=== PATIENT | female | born 1940 | race Caucasian/White ===

== ENCOUNTER 2016-10-25 16:53 | Inpatient (IN) | payer OTHER, MEDICAID ==
[2015-08-23 13:36] VITALS: Ht 160 cm; Wt 66.7 kg
[~2016-10-25] VITALS: Ht 160 cm; Wt 66.7 kg
[~2016-10-25 16:53] MED LIST: ALEN70TA27 PO; AMOX-423 PO; AMYL1CAP56 PO; ATEN-41 PO; BIOT25007 PO; BUPR300T55 PO; CALC-226 PO; CEFU250T85 PO; CRE5 PO; DOCU250C PO; ECO81 PO; ESOM40CA PO; ESOM40SU PO; FENO145T PO; GLIP5TAB13 PO; GLU500 PO; HYDR12.5 PO; ICOS1CAP PO; KLO.5 PO; LEVO250T20 PO; LEVO25TA7 PO; LISI2.5T48 PO; LORA-673 PO; MAGN250T31 PO; MECL-110 PO; OLME20TA14 PO; PREG75CA PO; PRO20 PO; QUET200T PO; ROSU5TAB3 PO; SITA100T7 PO; TRAM50TA92 PO
--- NOTE | 2016-10-25 18:07 | NUR ---
PATIENT RECEIVED DIRECT ADMIT FROM OFFICE OF ARABELLA BREWSTER, STABLE CONDITION.
[2016-10-25] MEDS ORDERED: METO-442 PO (18:24)
[2016-10-25] MEDS ORDERED: BIOF1TAB8 PO (18:24)
[2016-10-25] MEDS ORDERED: INSU100V9 SUBCUT (18:24)
[2016-10-25] MEDS ORDERED: INSU100V26 SUBCUT (18:24)
[2016-10-25] MEDS ORDERED: MIRT15TA7 PO (18:24)
--- NOTE | 2016-10-25 18:47 | NUR ---
MEDS SENT TO PHARMACY HOME MEDS INVENTORIED AND SENT TO PHARMACY, INFORMED PATIENT TO LET US KNOW WHEN FAMILY IS HERE TO TAKE THE MEDICATIONS HOME.
--- NOTE | 2016-10-25 18:53 | NUR ---
CLOSING NOTES PATIENT RESTING IN BED, DENIES PAIN, NO DISTRESS, WILL ENDORSE REPORT TO NOC SHIFT NURSE, BED IN LOWEST POSITION, THREE SIDE RAILS UP, BED ALARM ON, BED CLOSE TO NURSE'S STATION, FALL AND ASPIRATION PRECAUTIONS IN PLACE, CALL LIGHT IN THE PATIENT'S HAND.
[2016-10-25 19:30] VITALS: BP 139/57; PULSE 66; RESP 16; TEMP 96.4; O2SAT 96
--- NOTE | 2016-10-25 19:44 | NUR ---
PAGED PAGED ARABELLA CONCEPCION AT [phone] SPOKE WITH LETI.
--- NOTE | 2016-10-25 20:03 | NUR ---
NOTES DR BREWSTER CALLED FOR ADMITTING ORDERS.ORDERS RECEIVED.
[2016-10-25 20:26] VITALS: BP 132/81; PULSE 73; RESP 18; TEMP 96; O2SAT 96
--- NOTE | 2016-10-25 20:44 | NUR ---
NOTES PT A/A/OX4 NO C/O PAIN OR DISCOMFORT.CALL LIGHT WITHIN REACH,PT ORIENTED TO HER ROOM .WILL START THE IV SOON.CONTINUE TO MONITOR.
[2016-10-25] MEDS ORDERED: PREGABALIN 75 MG CAPSULE (LYRICA) PO SCH (21:00)
[2016-10-25] MEDS ORDERED: ICOSAPENT ETHYL 1 GM PO SCH (21:00)
[2016-10-25] MEDS ORDERED: [UNRECOGNIZED DRUG - OTHER] PO SCH (21:00)
[2016-10-25] MEDS: PREGABALIN PO SCH ×2 (22:00)
[2016-10-25] MEDS: QUEtiapine FUMARATE 100 MG TABLET PO SCH (22:09)
[2016-10-25] MEDS: metFORMIN HCL 500 MG TABLET PO SCH (22:09)
[2016-10-25] MEDS: MIRTAZAPINE 15 MG TABLET PO SCH (22:09)
[2016-10-25] MEDS: INSULIN REGULAR, HUMAN 100 UNITS/ML, 10 ML VIAL (novoLIN R) SUBCUT PRN (22:21)
--- NOTE | 2016-10-25 22:39 | NUR ---
NOTES WATCHING TV WITH NO COMPLAINTS ACCUCHECK WAS 153,INSULIN GIVEN PER SLIDING SCALE.
--- NOTE | 2016-10-25 23:17 | NUR ---
NOTES IV STARTED INTO LT HAND WITH #22 ANGIO.USING ANTISEPTIC TECHNIQUE. PT C/O ABDOMINAL PAIN 03/13 RN NOTIFIED.
[2016-10-25] MEDS: MORPHINE 2 MG/ML INJ. SYRINGE IVP PRN (23:30)
[2016-10-26] VITALS (7 sets, daily range): BP systolic 146–156; BP diastolic 74–90; PULSE 65–77; RESP 16–20; TEMP 96.4–97.2; O2SAT 93–96
--- NOTE | 2016-10-26 01:16 | NUR ---
NOTES PT SLEEPING,CALL LIGHT WITHIN REACH.CONTINUE TO MONITOR.
[2016-10-26] MEDS ORDERED: PIPERACILLIN/TAZOBACTAM 3.375 GM/VIAL (ZOSYN) IV ONE (01:34)
[2016-10-26] MEDS: PIPERACILLIN/TAZO 3.375/DEX-IS 50 ML IV SCH ×4 (01:41→17:05)
--- NOTE | 2016-10-26 03:52 | NUR ---
NOTES CRACKERS AND JELLO GIVEN PER REQUEST.CALL LIGHT WITHIN REACH.CONTINUE TO MONITOR.
--- NOTE | 2016-10-26 05:25 | NUR ---
NOTES PT REMAINS ASLEEP,CALL LIGHT WITHIN REACH.CONTINUE TO MONITOR.
[2016-10-26] MEDS: INSULIN REGULAR, HUMAN 100 UNITS/ML, 10 ML VIAL (novoLIN R) SUBCUT PRN ×2 (06:08→21:01)
--- NOTE | 2016-10-26 06:13 | NUR ---
CLOSING NOTES PT AWAKE ,ACCUCHECK WAS 155,INSULIN GIVEN PER S/S WILL ENDORSE THE CARE OF THE PT TO THE DAY NURSE.
[2016-10-26 06:43] LABS: EOSINOPHILS # (AUTO) 0.2 K/uL (0.0-0.4); LYMPHOCYTES # (AUTO) 2.1 K/uL (1.0-5.5); RED CELL DISTRIBUTION WIDTH 14.4 % (9.0-15.0)
[2016-10-26 06:44] LABS: BASOPHILS % (AUTO) 0.3 % (0.0-2.0); HEMATOCRIT 31.8 % (36-48); HEMOGLOBIN 10.8 g/dL (12.0-16.0); LYMPHOCYTES % (AUTO) 36.9 % (20.5-51.5); MEAN CORPUSCULAR HEMOGLOBIN 28 pg (27-31); MEAN CORPUSCULAR HGB CONC 34 % (32-36); MEAN CORPUSCULAR VOLUME 84 fL (79.0-98.0); MONOCYTES # (AUTO) 0.5 K/uL (0.0-1.0); MONOCYTES % (AUTO) 9.4 % (1.7-9.3); NEUTROPHILS % (AUTO) 49.4 % (40.0-70.0); PLATELET COUNT (AUTO) 376 K/uL (130-430); RED BLOOD CELL COUNT(AUTO) 3.79 MIL/uL (4.2-6.2); WHITE BLOOD COUNT (AUTO) 5.8 K/uL (4.8-10.8)
[2016-10-26 06:46] LABS: ALANINE AMINOTRANSFERASE 34 U/L (12-78); ALBUMIN 3.1 g/dL (3.4-4.8); ANION GAP 9 (5-15); ASPARTATE AMINOTRANSFERASE 33 U/L (10-37); CALCIUM 8.6 mg/dL (8.4-11.0); CHLORIDE 101 mmol/L (98-107); CREATININE 1.01 mg/dL (0.55-1.30); GLUCOSE 186 mg/dL (70-99); POTASSIUM 3.2 mmol/L (3.5-5.1); SODIUM SERUM 133 mmol/L (136-145); TOTAL BILIRUBIN 0.3 mg/dL (0.0-1.0); UREA NITROGEN, BLOOD 19 mg/dL (8-21)
--- NOTE | 2016-10-26 08:00 | NUR ---
Opening notes, A/O x 4, no SOB, denied pain. Skin warm to touch, IV at L AC, patent. Call light within reach, Bed in low position. will continue to monitor patient.
[2016-10-26] MEDS: MORPHINE 2 MG/ML INJ. SYRINGE IVP PRN ×4 (08:46→22:08)
--- NOTE | 2016-10-26 08:46 | NUR ---
pain med pt given pain med for pain level 7/10 in abdomen
[2016-10-26] MEDS: LORATADINE 10 MG TABLET PO SCH (08:48)
[2016-10-26] MEDS: metFORMIN HCL 500 MG TABLET PO SCH ×3 (08:48→20:49)
[2016-10-26] MEDS: ASPIRIN 81 MG TABLET(ECOTRIN) PO SCH (08:48)
[2016-10-26] MEDS: LIPASE/PROTEASE/AMYLASE 1 CAP PO SCH (08:49)
[2016-10-26] MEDS: METOPROLOL TARTRATE 50 MG TABLET PO SCH (08:50)
[2016-10-26] MEDS: HYDROCHLOROTHIAZIDE 12.5 MG CAPSULE (HCTZ) PO SCH (08:50)
[2016-10-26] MEDS ORDERED: BIOTIN 500 MG PO SCH (09:00)
[2016-10-26] MEDS ORDERED: LEVOTHYROXINE SODIUM 0.025 MG TABLET PO SCH (09:00)
[2016-10-26] MEDS ORDERED: LISINOPRIL 5 MG TABLET PO SCH (09:00)
[2016-10-26] MEDS: buPROPion HCL 150 MG XL TAB PO SCH (09:00)
--- NOTE | 2016-10-26 09:42 | NUR ---
CONSULTATION CALLED REASON FOR CONSULT: DIVERTICULITIS WHO WAS NOTIFIED: YENI CONSULTING DR: ARABELLA BREWSTER MANAGER [employer] NUMBER: [phone]
--- NOTE | 2016-10-26 10:00 | NUR ---
rounding notes pt in bed, denies pain, no sob. no distress. resting in bed, iv or l wrist patent. call light in reach, bed in low position, will continue to monitor.
[2016-10-26] MEDS ORDERED: DIATR MEGLU/DIATRIZ SOD 30 ML SOLUTION PO ONE (10:15)
[2016-10-26] MEDS ORDERED: LISINOPRIL 20 MG TABLET PO ONE (12:15)
--- NOTE | 2016-10-26 12:56 | NUR ---
pain med patient given pain med for pain level of 8/10
--- NOTE | 2016-10-26 14:00 | NUR ---
rounding notes pt in bed, denies pain, no sob. no distress. resting comfortably in bed, call light in reach, bed in low position, will continue to monitor.
--- NOTE | 2016-10-26 16:00 | NUR ---
rounding notes pt in bed, denies pain, no sob. no distress. resting comfortably in bed. visitor at bedside. new iv stated on r forearm #20, patient tolerated well. call light in reach, bed in low position, will continue to monitor.
--- NOTE | 2016-10-26 18:18 | NUR ---
closing notes, pt remain aao, pain medication requested by patient and given. no untoward incident. dr youngblood reminded of the K-level of 3.2 this am, said he will place order. will endorse to night rn.
--- NOTE | 2016-10-26 19:34 | NUR ---
notes received the pt from the day nurse.pt a/a/ox4 watching tv with no complaints.iv intact,no redness or swelling noted.call light within reach.safety measures in progress.will continue to monitor.
[2016-10-26] MEDS: LACTOBACILLUS RHAMNOSUS GG 1 CAP CAPSULE PO SCH (20:49)
[2016-10-26] MEDS: QUEtiapine FUMARATE 100 MG TABLET PO SCH (20:49)
[2016-10-26] MEDS: MIRTAZAPINE 15 MG TABLET PO SCH (20:49)
[2016-10-26] MEDS: PANTOPRAZOLE SODIUM 40 MG TAB PO SCH (20:51)
[2016-10-26] MEDS: PREGABALIN PO SCH ×2 (21:06)
[2016-10-26] MEDS: POTASSIUM CHLORIDE 20 MEQ TAB.PRT.SR PO SCH ×2 (21:06→22:35)
[2016-10-26] MEDS: SIMVASTATIN 20 MG TABLET PO SCH (21:07)
--- NOTE | 2016-10-26 21:22 | NUR ---
notes potassium given as ordered.orders for a lab draw at midnight for potassium and mag.placed.accucheck was 155,insulin given per s/s.
--- NOTE | 2016-10-26 23:14 | NUR ---
notes pt resting with no complaints.continue to monitor.
[2016-10-27 00:06] VITALS: BP 128/81; PULSE 68; RESP 16; TEMP 98.2; O2SAT 96
[2016-10-27] MEDS: PIPERACILLIN/TAZO 3.375/DEX-IS 50 ML IV SCH ×5 (00:26→23:45)
[2016-10-27 00:34] LABS: POTASSIUM 3.9 mmol/L (3.5-5.1)
--- NOTE | 2016-10-27 01:16 | NUR ---
notes pt sleeping,no distress noted.call light within reach.continue to monitor.
--- NOTE | 2016-10-27 03:25 | NUR ---
notes pt sleeping,call light within reach.continue to monitor.
--- NOTE | 2016-10-27 05:18 | NUR ---
notes pt resting with eyes closed.continue to monitor.
[2016-10-27] MEDS: LEVOTHYROXINE SODIUM 0.025 MG TABLET PO SCH (06:03)
[2016-10-27] MEDS: INSULIN REGULAR, HUMAN 100 UNITS/ML, 10 ML VIAL (novoLIN R) SUBCUT PRN ×2 (06:09→17:47)
--- NOTE | 2016-10-27 06:12 | NUR ---
closing notes pt awake ,accucheck was 158.insulin given per s/s.will endorse the care of the pt to the day nurse.
[2016-10-27 07:29] VITALS: BP 136/84; PULSE 80; RESP 18; TEMP 96.1; O2SAT 92
--- NOTE | 2016-10-27 08:00 | NUR ---
OPENING NOTES, RECEIVED PATIENT IN BED, PATIENT IS ALERT AND ORIENTED 4X, DENIES PAIN , NO SOB, NO DISTRESS. BREATHING NORMAL AND EVEN, ON ROOM AIR. IV SITE APPEARS NORMAL AND IV FLUIDS RUNNING WELL. CALL LIGHT IN REACH, BED IN LOW POSITON. INSTRUCTED PATIENT TO CALL FOR ASSISTANCE AND PAIN MEDICATIONS ANY TIME. WILL CONTINUE TO MONITOR.
[2016-10-27] MEDS: LISINOPRIL 20 MG TABLET PO SCH (09:14)
[2016-10-27] MEDS: LIPASE/PROTEASE/AMYLASE 1 CAP PO SCH (09:14)
[2016-10-27] MEDS: buPROPion HCL 150 MG XL TAB PO SCH (09:15)
[2016-10-27] MEDS: metFORMIN HCL 500 MG TABLET PO SCH ×3 (09:15→21:37)
[2016-10-27] MEDS: ASPIRIN 81 MG TABLET(ECOTRIN) PO SCH (09:15)
[2016-10-27] MEDS: LACTOBACILLUS RHAMNOSUS GG 1 CAP CAPSULE PO SCH ×2 (09:15→21:24)
[2016-10-27] MEDS: LORATADINE 10 MG TABLET PO SCH (09:15)
[2016-10-27] MEDS: HYDROCHLOROTHIAZIDE 12.5 MG CAPSULE (HCTZ) PO SCH (09:16)
[2016-10-27] MEDS: METOPROLOL TARTRATE 50 MG TABLET PO SCH (09:17)
--- NOTE | 2016-10-27 10:00 | NUR ---
ROUNDING NOTES PT SITTING IN BED, DENIES PAIN, NO SOB, RESTING COMFORTABLY IN BED, CALL LIGHT IN REACH, BED IN LOW POSITION.
[2016-10-27 11:29] VITALS: BP 127/68; PULSE 73; RESP 19; TEMP 97; O2SAT 96
--- NOTE | 2016-10-27 12:00 | NUR ---
ROUNDING NOTES PT SITTING IN BED, DENIES PAIN, NO SOB, RESTING COMFORTABLY IN BED, CALL LIGHT IN REACH, BED IN LOW POSITION.
--- NOTE | 2016-10-27 14:00 | NUR ---
ROUNDING NOTES PT SITTING IN BED, DENIES PAIN, NO SOB, RESTING COMFORTABLY IN BED, CALL LIGHT IN REACH, BED IN LOW POSITION.
[2016-10-27 16:00] VITALS: BP 147/70; PULSE 67; RESP 19; TEMP 97.6; O2SAT 98
--- NOTE | 2016-10-27 16:01 | NUR ---
rounding notes, PATIENT IN BED, RESTING, NO SOB, NO DISTRESS, NO C/O PAIN. BED IN LOW POSITION, CALL LIGHT IN REACH. SAFETY PRECAUTION IN PLACE. INSTRUCTED TO CALL FOR ASSIST AND PAIN MED.
[2016-10-27] MEDS: metroNIDAZOLE 500 mg/NS 100 ML IV SCH ×2 (17:48→21:23)
--- NOTE | 2016-10-27 18:14 | NUR ---
CLOSING NOTES, PT IN BED, NO C/O PAIN, NO SOB, NO DISTRESS, ATE A LITTLE BIT OF HER DINNER, PT REQUESTED FOR A DIFFERENT DIET. WILL TELL MD. CALL LIGHT IN REACH, BED IN LOW POSITION. SAFETY AND FALL PRECAUTION IN PLACE. WILL ENDORSE TO NIGHT RN.
[2016-10-27 19:35] LABS: BILIRUBIN,URINE NEGATIVE (NEGATIVE); BLOOD, URINE NEGATIVE (NEGATIVE); CLARITY/URINE CLEAR (CLEAR); GLUCOSE,URINE NEGATIVE (NEGATIVE); KETONES,URINE NEGATIVE (NEGATIVE); LEUKOCYTE ESTERASE ,URINE NEGATIVE (NEGATIVE); NITRITE, URINE NEGATIVE (NEGATIVE); PROTEIN URINE NEGATIVE (NEGATIVE); UROBILINOGEN,URINE 0.2 (0.2-1.0)
[2016-10-27 19:54] LABS: COLOR,URINE STRAW (YELLOW)
[2016-10-27 20:19] VITALS: BP 153/78; PULSE 78; RESP 16; TEMP 98.6; O2SAT 98
--- NOTE | 2016-10-27 20:19 | NUR ---
OPENING NOTES PATIENT IS A/OX4. NO SIGNS OF DISTRESS. BREATHING IS NON LABORED. VITAL SIGNS ARE STABLE. IV IS PATENT AND SHOWS NO SIGNS OF COMPLICATIONS. PATIENT IS ON TALKING THE TELEPHONE. NO COMPLAINTS OF PAIN. PATIENT INSTRUCTED TO CALL FOR ASSISTANCE. SAFETY MEASURES ARE IN PLACE. WILL CONTINUE TO MONITOR.
[2016-10-27] MEDS: PREGABALIN PO SCH ×2 (21:23)
[2016-10-27] MEDS: MIRTAZAPINE 15 MG TABLET PO SCH (21:23)
[2016-10-27] MEDS: SIMVASTATIN 20 MG TABLET PO SCH (21:24)
[2016-10-27] MEDS: MAGNESIUM OXIDE 400 MG TABLET PO SCH (21:24)
[2016-10-27] MEDS: PANTOPRAZOLE SODIUM 40 MG TAB PO SCH (21:24)
[2016-10-27] MEDS: QUEtiapine FUMARATE 100 MG TABLET PO SCH (21:25)
--- NOTE | 2016-10-27 22:00 | NUR ---
ROUNDS PATIENT IS IN BED RESTING AND WATCHING TV. NO SIGNS OF DISTRESS. BREATHING IS NON LABORED. PATIENT REFUSED BED ALARM. PATIENT INSTRUCTED TO CALL FOR ASSISTANCE. PATIENT VERBALIZED UNDERSTANDING. SAFETY MEASURES ARE IN PLACE. WILL CONTINUE TO MONITOR. CALL LIGHT IS WITHIN REACH.
[2016-10-28] VITALS (7 sets, daily range): BP systolic 118–156; BP diastolic 69–80; PULSE 66–82; RESP 16–20; TEMP 96.6–98.6; O2SAT 94–98
--- NOTE | 2016-10-28 00:05 | NUR ---
ROUNDS PATIENT WAS GIVEN ICE WATER.
--- NOTE | 2016-10-28 02:05 | NUR ---
ROUNDS PATIENT IS IN BED SLEEPING. NO SIGNS OF DISTRESS. BREATHING IS NON LABORED. SAFETY MEASURES ARE IN PLACE. WILL CONTINUE TO MONITOR.
--- NOTE | 2016-10-28 03:27 | NUR ---
ROUNDS PATIENT IS IN BED SLEEPING. NO SIGNS OF DISTRESS. BREATHING IS NON LABORED. CALL LIGHT IS WITHIN REACH. SAFETY MEASURES ARE IN PLACE. WILL CONTINUE TO MONITOR.
--- NOTE | 2016-10-28 05:21 | NUR ---
ROUNDS PATIENT IS IN BED SLEEPING. NO SIGNS OF DISTRESS. BREATHING IS NON LABORED. SAFETY MEASURES ARE IN PLACE. WILL CONTINUE TO MONITOR.
[2016-10-28] MEDS: PIPERACILLIN/TAZO 3.375/DEX-IS 50 ML IV SCH (05:42)
[2016-10-28] MEDS: LEVOTHYROXINE SODIUM 0.025 MG TABLET PO SCH (06:01)
[2016-10-28] MEDS: metroNIDAZOLE 500 mg/NS 100 ML IV SCH ×2 (06:02→15:04)
[2016-10-28] MEDS: INSULIN REGULAR, HUMAN 100 UNITS/ML, 10 ML VIAL (novoLIN R) SUBCUT PRN (06:07)
--- NOTE | 2016-10-28 06:46 | NUR ---
CLOSING NOTES PATIENT IS IN BED SLEEPING. NO SIGNS OF DISTRESS. BREATHING IS NON LABORED. IV IS PATENT. CALL LIGHT IS WITHIN REACH. SAFETY MEASURES ARE IN PLACE. WILL ENDORSE CARE TO THE MORNING NURSE.
--- NOTE | 2016-10-28 07:30 | NUR ---
rn notes: patient is asleep at this time. aaox 4. speaks salvadorean only but understand burundian talk some burundian too. afebrile. vss stable. lungs bilaterally clear. abdomen soft and non distended. has iv access on the rt forearm. saline lock. patent/dry. call lights within reach. safety measures maintained. informed patient to call for assistance. bed in low position.
--- NOTE | 2016-10-28 08:31 | NUR ---
patient is eating breakfast tolerating well. no pain nor distress noted.
[2016-10-28] MEDS: LACTOBACILLUS RHAMNOSUS GG 1 CAP CAPSULE PO SCH (09:32)
[2016-10-28] MEDS: METOPROLOL TARTRATE 50 MG TABLET PO SCH (09:33)
[2016-10-28] MEDS: HYDROCHLOROTHIAZIDE 12.5 MG CAPSULE (HCTZ) PO SCH (09:33)
[2016-10-28] MEDS: buPROPion HCL 150 MG XL TAB PO SCH (09:34)
[2016-10-28] MEDS: LISINOPRIL 20 MG TABLET PO SCH (09:35)
[2016-10-28] MEDS: metFORMIN HCL 500 MG TABLET PO SCH ×2 (09:35→15:08)
[2016-10-28] MEDS: ASPIRIN 81 MG TABLET(ECOTRIN) PO SCH (09:35)
[2016-10-28] MEDS: LORATADINE 10 MG TABLET PO SCH (09:35)
[2016-10-28] MEDS: MAGNESIUM OXIDE 400 MG TABLET PO SCH ×2 (09:36→15:08)
[2016-10-28] MEDS: LIPASE/PROTEASE/AMYLASE 1 CAP PO SCH (09:40)
--- NOTE | 2016-10-28 09:44 | NUR ---
due medication given at this time. made comfortable. assists on adls. sitting on the edge of the bed. call lights within reach. stable.
--- NOTE | 2016-10-28 10:00 | NUR ---
watching tv stable.
[2016-10-28] MEDS ORDERED: METR500T PO (10:58)
--- NOTE | 2016-10-28 12:00 | NUR ---
patient eating lunch tolerating well. had bowel movement but patient flushed the toilet, patient had hut at the bathroom. patient forgot. refused to have blood sugar taken
--- NOTE | 2016-10-28 14:00 | NUR ---
patient is quite. no pain nor sob noted. asleep at this time.
--- NOTE | 2016-10-28 15:10 | NUR ---
due medication given as ordered.
--- NOTE | 2016-10-28 15:47 | NUR ---
daughter Keena Steinberg called and leave a message. for possible pick today for discharge.
--- NOTE | 2016-10-28 17:00 | NUR ---
cousin came to pear picker the patient. refused to have blood sugar checked at this time. said dora okay.
--- NOTE | 2016-10-28 17:30 | NUR ---
transition care instruction given to the patient in yoruba. and continue home medication as reconciled by the md. return follow up with pcp in one to two week.s saline lock removed. scd id band removed.
--- NOTE | 2016-10-28 18:20 | NUR ---
patient left in stable condition. no sob nor distress noted. refused to be in the wheelchair. accompanied to the lobby.
--- NOTE | 2016-11-02 12:11 | NUR ---
Discharge Follow Up Phone Call POULTRY DEBEAKER phoned patient, . The message stated that the number is no longer in service. POULTRY DEBEAKER phoned patient's daughter, Keena, . Keena stated that patient continues to feel sick. She had a follow up appointment with her PCP, Dr Awan on 10/29/16 and will return tomorrow, on 11/03/16. She questioned why Dr Awan did not discharge patient as he is her PCP. POULTRY DEBEAKER explained that Dr Blanco was the admitting doctor and Dr Awan was listed as a consulting doctor. Keena thinks the prescription has been filled. Patient uses her blood glucose monitor as directed and her sugars have been stable. Patient lives with Keena and has a caregiver through [facility]. There were no other questions or concerns. POULTRY DEBEAKER notified admitting of patient's phone number no longer in service.
[2016-12-16] MEDS ORDERED: OLME20TA14 PO (18:42)
[2016-12-16] MEDS ORDERED: DOCU-144 PO (18:44)
[2016-12-16] MEDS ORDERED: TYC3 PO (18:45)
[2016-12-16] MEDS ORDERED: ONDA4TAB5 PO (18:45)
[2016-12-16] MEDS ORDERED: AMYL1CAP56 PO (18:46)
== END 2016-10-28 19:43 | disposition home or self-care (01) | DRG 392 ==
LOC: SMU 17:51
PROVIDERS: ADMIT Internal Medicine Infectious Disease; ATTEND Internal Medicine Infectious Disease
DX: K57.92 Diverticulitis of intestine, part unspecified, without perforation or abscess without bleeding (principal); E44.1 Mild protein-calorie malnutrition; K58.0 Irritable bowel syndrome with diarrhea; E03.9 Hypothyroidism, unspecified; K52.9 Noninfective gastroenteritis and colitis, unspecified; I10 Essential (primary) hypertension; I25.10 Atherosclerotic heart disease of native coronary artery without angina pectoris; F32.9 Major depressive disorder, single episode, unspecified; E11.9 Type 2 diabetes mellitus without complications; Z80.0 Family history of malignant neoplasm of digestive organs; Z90.710 Acquired absence of both cervix and uterus; Z91.040 Latex allergy status; Z88.1 Allergy status to other antibiotic agents; Z88.8 Allergy status to other drugs, medicaments and biological substances; Z68.26 Body mass index [BMI] 26.0-26.9, adult
CPT/HCPCS: 36415; 71010; 80053; 81003; 82962; 83735-TC; 84132-TC; 85025; 87086; J1815; J2270; J2543; J3490; J7050; Q9964

== ENCOUNTER 2017-03-30 03:11 | Inpatient (IN) | payer OTHER, MEDICAID ==
[~2017-03-30] VITALS: Ht 160 cm; Wt 68.5 kg
[2017-03-30] VITALS (8 sets, daily range): BP systolic 104–162
[~2017-03-30 03:11] MED LIST changes: -ALEN70TA27 PO; -AMOX-423 PO; -ATEN-41 PO; +BIOF1TAB8 PO; -CALC-226 PO; -CEFU250T85 PO; +DOCU-144 PO; -DOCU250C PO; -ESOM40CA PO; -ESOM40SU PO; -FENO145T PO; -GLIP5TAB13 PO; +INSU100V26 SUBCUT; +INSU100V9 SUBCUT; -KLO.5 PO; -LEVO250T20 PO; -MECL-110 PO; +METO-442 PO; +METR500T PO; +MIRT15TA7 PO; +ONDA4TAB5 PO; -PRO20 PO; -ROSU5TAB3 PO; -TRAM50TA92 PO; +TYC3 PO
--- NOTE | 2017-03-30 03:14 | NUR ---
Patient to ER bed 8 to gown for evaluation. Side rails up. Report given to Gwen JAIME.
--- NOTE | 2017-03-30 03:15 | NUR ---
Patient to ER C/O sudden onset of chest pain one hour prior to ER arrival. Patient describes the pain being sharp 8/10 radiating to left side of neck, shoulder and back. Patient also C/O nausea, no vomiting. States Hx of angina. AAOx4, unlabored breathing, no signs of acute distress.
--- NOTE | 2017-03-30 03:17 | NUR ---
ER MD Horn at bedside evaluating the patient
--- NOTE | 2017-03-30 03:20 | NUR ---
# 20 gauge angiocath placed to right hand. Use of asceptic technique. Opsite placed over site. Blood return noted. Blood for lab drawn from site. Flushed with 10 cc of normal saline. No evidence of infiltration noted. Patient tolerated well.
[2017-03-30] MEDS ORDERED: CLOPIDOGREL BISULFATE 75 MG TABLET PO ONE (03:30)
[2017-03-30] MEDS ORDERED: NITROGLYCERIN 0.4 MG TAB.SUBL SL ONE (03:30)
[2017-03-30] MEDS ORDERED: ASPIRIN 325 MG TABLET PO ONE (03:30)
--- NOTE | 2017-03-30 03:30 | NUR ---
Radiology at bedside with portable for Xray
--- NOTE | 2017-03-30 03:45 | NUR ---
Patient reports chest pain pain 3/10 15 minutes after administration of nitrostat, aspirin & plavix. No adverse reactions noted. Will continue to monitor.
[2017-03-30 03:49] LABS: HEMATOCRIT 31.4 % (36-48); HEMOGLOBIN 10.6 g/dL (12.0-16.0); LYMPHOCYTES % (AUTO) 24.7 % (20.5-51.5); MEAN CORPUSCULAR HEMOGLOBIN 29 pg (27-31); MEAN CORPUSCULAR HGB CONC 34 % (32-36); MEAN CORPUSCULAR VOLUME 86 fL (79.0-98.0); NEUTROPHILS % (AUTO) 63.2 % (40.0-70.0); PLATELET COUNT (AUTO) 321 K/uL (130-430); RED BLOOD CELL COUNT(AUTO) 3.65 MIL/uL (4.2-6.2); RED CELL DISTRIBUTION WIDTH 12.8 % (9.0-15.0); WHITE BLOOD COUNT (AUTO) 10.7 K/uL (4.8-10.8)
[2017-03-30 03:50] LABS: BASOPHILS # (AUTO) 0.3 K/uL (0.0-0.2); BASOPHILS % (AUTO) 2.9 % (0.0-2.0); EOSINOPHILS # (AUTO) 0.2 K/uL (0.0-0.4); EOSINOPHILS % (AUTO) 2.2 % (0.0-4.0); LYMPHOCYTES # (AUTO) 2.6 K/uL (1.0-5.5); MONOCYTES # (AUTO) 0.7 K/uL (0.0-1.0); NEUTROPHILS # (AUTO) 6.9 K/uL (1.8-7.7)
[2017-03-30] MEDS ORDERED: ESOM40CA53 PO (03:54)
[2017-03-30] MEDS ORDERED: CALC-995 PO (03:54)
--- NOTE | 2017-03-30 03:54 | NUR ---
Medication reconciliation completed with information provided by Patient. Any prior medication reconciliation on file was reviewed and corrected.
[2017-03-30 03:58] LABS: ANION GAP 11 (5-15); CHLORIDE 99 mmol/L (98-107); CREATININE 1.29 mg/dL (0.55-1.30); GLUCOSE 304 mg/dL (70-99); POTASSIUM 4.2 mmol/L (3.5-5.1); SODIUM SERUM 131 mmol/L (136-145); UREA NITROGEN, BLOOD 30 mg/dL (8-21)
[2017-03-30 03:59] LABS: BILIRUBIN,URINE NEGATIVE (NEGATIVE); BLOOD, URINE NEGATIVE (NEGATIVE); CLARITY/URINE CLEAR (CLEAR); COLOR,URINE YELLOW (YELLOW); GLUCOSE,URINE NEGATIVE (NEGATIVE); KETONES,URINE NEGATIVE (NEGATIVE); LEUKOCYTE ESTERASE ,URINE 3+ (NEGATIVE); NITRITE, URINE NEGATIVE (NEGATIVE); PROTEIN URINE NEGATIVE (NEGATIVE); UROBILINOGEN,URINE 0.2 (0.2-1.0)
[2017-03-30 04:02] LABS: BACTERIA,URINE FEW /HPF (None Seen); RBC,URINE 0-3 /HPF (0-3); WBC,URINE 20-50 /HPF (0-3)
[2017-03-30 04:07] LABS: ALANINE AMINOTRANSFERASE 29 U/L (12-78); ASPARTATE AMINOTRANSFERASE 31 U/L (10-37); CHOLESTEROL 171 mg/dL (<200); HDL CHOLESTEROL 37 mg/dL (>55); LDL CHOLESTEROL 107 mg/dL (<100); TOTAL BILIRUBIN 0.2 mg/dL (0.0-1.0); TRIGLYCERIDES 348 mg/dL (30-150)
[2017-03-30] MEDS ORDERED: cefTRIAXone 1 GM in D5W 50 ML IV ONE (04:15)
[2017-03-30] MEDS ORDERED: NACL 0.9% 1,000 ML IV ONE (04:15)
[2017-03-30] MEDS ORDERED: cefTRIAXone 1 GM VIAL ONE (04:20)
--- NOTE | 2017-03-30 04:29 | NUR ---
15 minutes after administration of rocephin & NS. No adverse reactions noted. Will continue to monitor.
[2017-03-30] MEDS ORDERED: INSULIN REGULAR, HUMAN 10 UNITS/0.1 ML INJ IVP ONE (04:30)
--- NOTE | 2017-03-30 05:08 | NUR ---
Per MD Awan verbal orders "continue all home meds except DM meds"
--- NOTE | 2017-03-30 05:08 | NUR ---
Patient will be admitted to care of Dr Lv Rome. Admitted to TELE in unit. Will go to room 135. Belongings list completed. Summary report printed. Report will be given at bedside.
--- NOTE | 2017-03-30 05:20 | NUR ---
Transfer to [facility] via ACLS protocol. Licensed nurse present. IV present no signs or symptoms of infiltration.
--- NOTE | 2017-03-30 05:30 | NUR ---
ADMISSION NOTE Received patient from ER via gurney. Patient admitted with diagnosis of angina and . Patient is awake, alert, oriented X 3. Patient oriented to hospital room, call light, [id number]. Personal belongings checked and Belongings List documented. Call light within reach.
--- NOTE | 2017-03-30 05:35 | NUR ---
Initial Note Received report from ADDISON Hidalgo. Patient awake, alert and oriented. Romansh speaking but understands belarusian. Able to transfer to bed without difficulty. No SOB noted. Denies any chest pain or n/v at this time. Skin intact. No peripheral edema noted. Belongings noted. Patient said that her daughter will come today and she will send her jewelries and valuables to her daughter. Will endorse. Blood sugar [id number], coverage given. Due meds given, tolerated well. Current flu vaccine. Afebrile. Vital signs stable. Needs DVT prophylaxis. Will endorse. Needs attended. Call light within reach. Kept warm and comfortable.
--- NOTE | 2017-03-30 05:54 | NUR ---
CONSULT CONSULT CALLED FOR DR. ESTEPHANIA SANDOVAL BOOK REPAIRER THIS MORNING I SPOKE WITH JAYA PISANO
[2017-03-30 06:02] LABS: ANION GAP 10 (5-15); CALCIUM 8.5 mg/dL (8.4-11.0); CHLORIDE 103 mmol/L (98-107); CREATININE 1.05 mg/dL (0.55-1.30); GLUCOSE 204 mg/dL (70-99); SODIUM SERUM 137 mmol/L (136-145); UREA NITROGEN, BLOOD 28 mg/dL (8-21)
[2017-03-30] MEDS: metroNIDAZOLE 500 MG TABLET PO SCH ×3 (06:11→21:05)
[2017-03-30] MEDS: NITROGLYCERIN 1 INCH (GM) OINT. TP SCH ×3 (06:14→21:03)
[2017-03-30] MEDS: INSULIN REGULAR, HUMAN 100 UNITS/ML, 10 ML VIAL (novoLIN R) SUBCUT PRN ×4 (06:20→21:07)
--- NOTE | 2017-03-30 07:09 | NUR ---
End Note No changes from previous assessment. No complaints at this time. NSR on monitor.
--- NOTE | 2017-03-30 07:20 | NUR ---
AM ROUNDS: PATIENT LYING ON THE BED,AWAKE,ALERT AND ORIENTED X4. DENIES ANY PAIN . WITH RIGHT HAND IV SALINE LOCK ,CLEAN AND DRY. NO NEEDS THIS TIME. SINUS RHYTHM IN THE MONITOR.
[2017-03-30] MEDS ORDERED: ASPIRIN 81 MG TAB.CHEW PO SCH (09:00)
[2017-03-30] MEDS ORDERED: LISINOPRIL 5 MG TABLET PO SCH (09:00)
[2017-03-30] MEDS ORDERED: METOPROLOL TARTRATE 50 MG TABLET PO SCH (09:00)
[2017-03-30] MEDS ORDERED: CARVEDILOL 6.25 MG TABLET (COREG) PO SCH (09:00)
[2017-03-30] MEDS ORDERED: ICOSAPENT ETHYL 1 GM PO SCH (09:00)
[2017-03-30] MEDS ORDERED: OLMESARTAN MEDOXOMIL 20 MG TABLET PO SCH (09:00)
[2017-03-30] MEDS: PANTOPRAZOLE SODIUM 40 MG TAB PO SCH (09:58)
[2017-03-30] MEDS: ASPIRIN 81 MG TABLET(ECOTRIN) PO SCH (09:58)
[2017-03-30] MEDS: CALCIUM 600/VIT D PO SCH (09:59)
[2017-03-30] MEDS: LEVOTHYROXINE SODIUM 0.025 MG TABLET PO SCH (09:59)
[2017-03-30] MEDS: LIPASE/PROTEASE/AMYLASE 1 CAP PO SCH (09:59)
[2017-03-30] MEDS: buPROPion HCL 150 MG XL TAB PO SCH (10:07)
--- NOTE | 2017-03-30 11:24 | NUR ---
BLOOD SUGAR: BLOOD SUGAR TAKEN,WITH INSULIN COVERAGE GIVEN PER SLIDING SCALE.
--- NOTE | 2017-03-30 13:54 | NUR ---
MEDICATIONS: DUE PO FLAGYL GIVEN AND NITRO PLACED ON THE CHEST ORDERED. NO NEEDS THIS TIME.
--- NOTE | 2017-03-30 15:15 | NUR ---
scd: Placed bilateral scd,s on lower extremities as ordered. Instructed patient to call when going to the toilet and if needed help.
--- NOTE | 2017-03-30 16:25 | NUR ---
rounds: patient resting. no complained made.continue to monitor.
[2017-03-30] MEDS ORDERED: ACETAMINOPHEN 325 MG TABLET PO ONE ×2 (17:00→19:00)
[2017-03-30] MEDS ORDERED: LISINOPRIL 5 MG TABLET PO ONE (17:00)
--- NOTE | 2017-03-30 17:04 | NUR ---
CONSULTATION PAGED REASON FOR CONSULTATION:H & P WAS CONSULT CALLED?:Y PERSON WHO WAS NOTIFIED:EXCHANGE CONSULTING PHYSICIAN:JAMES TAYLOR BASEBALL COACH SPECIALTY:INTERNAL MEDICINE BASEBALL COACH PHONE NUMBER:[phone] REQUESTING PHYSICIAN:ARABELLA CONCEPCION
--- NOTE | 2017-03-30 17:18 | NUR ---
Patient with fever 102.3, Gave Tylenol 650 PO. Patient also very flushed entire body, feeling nauseas. BP stable, HR 119. RN notified and MD paged by primary RN.
[2017-03-30] MEDS ORDERED: DIPHENHYDRAMINE HCL 25 MG CAPSULE ONE (17:30)
[2017-03-30] MEDS ORDERED: DIPHENHYDRAMINE HCL 25 MG CAPSULE PO ONE (17:30)
--- NOTE | 2017-03-30 17:30 | NUR ---
ITCHING: SPOKE WITH DR LUTHER FOR REDNESS AND ITCHING. DUE PO BENADRYL GIVEN ORDERED.
[2017-03-30] MEDS: cefTRIAXone 1 GM in D5W 50 ML IV SCH (17:43)
--- NOTE | 2017-03-30 17:50 | NUR ---
BLOOD SUGAR: BLOOD SUGAR TAKEN,WITH INSULIN COVERAGE GIVEN PER SLIDING SCALE.
[2017-03-30] MEDS ORDERED: ONDANSETRON HCL 4 MG/2 ML VIAL IVP PRN (18:00)
--- NOTE | 2017-03-30 18:12 | NUR ---
TEMP: RECHECKED LEHL=527.5 FAHRENHEIT,CONTINUE COOLING MEASURES UNTIL FEVER SUBSIDE.
--- NOTE | 2017-03-30 19:00 | NUR ---
closing notes: patient not in any distress.blood drawn for culture for elevated temperature. still with redness bilateral arm and minimal on lower legs,md aware.continue to monitor.endorsed to incoming night nurse in stable condition.
--- NOTE | 2017-03-30 19:30 | NUR ---
home meds: Patient's home meds given to patient's daughter to send home.
--- NOTE | 2017-03-30 20:00 | NUR ---
Initial Notes Initial Notes Received patient resting in bed, awake, alert, oriented, family at bedside. Patient denies any acute distress or pain at this time. Vital signs stable, elevated temperature. Breathing is even and unlabored. IV site patent/clean/dry. Patient's skin red over entire body, warm to touch. Educated patient regarding use of call light for assistance and fall precautions, patient verbalized understanding. Needs address. Call light in hand, fall precautions in place. Will continue to monitor.
[2017-03-30] MEDS: GENTAMICIN 100 mg/50 mL NS 50 ML IV SCH (20:22)
[2017-03-30] MEDS: MIRTAZAPINE 15 MG TABLET PO SCH (21:04)
[2017-03-30] MEDS: SIMVASTATIN 40 MG TABLET PO SCH (21:04)
[2017-03-30] MEDS: PREGABALIN 25 MG CAPSULE (LYRICA) PO SCH (21:04)
[2017-03-30] MEDS: QUEtiapine FUMARATE 100 MG TABLET PO SCH (21:05)
[2017-03-30] MEDS: ICOSAPENT ETHYL PO SCH (21:05)
[2017-03-30] MEDS: CARVEDILOL 6.25 MG TABLET (COREG) PO SCH (21:10)
--- NOTE | 2017-03-30 22:00 | NUR ---
Round Patient resting in bed, awake. Patient denies any acute distress or pain at this time. Breathing is even and unlabored. Needs addressed. Call light in hand, fall precautions in place.
--- NOTE | 2017-03-31 | NUR ---
Rounds Patient resting in bed with eyes closed, easily aroused. Patient denies any acute distress or pain at this time. Breathing is even and unlabored. Needs addressed. Call light in hand, fall precautions in place. Will continue to monitor for changes and safety.
--- NOTE | 2017-03-31 02:00 | NUR ---
Rounds Patient resting in bed with eyes closed. No acute distress noted, breathing is even and unlabored. Call light in hand, will continue to monitor.
[2017-03-31 04:10] VITALS: BP_SYST 107
--- NOTE | 2017-03-31 04:30 | NUR ---
Rounds Patient resting in bed with eyes closed, easily aroused. Patient denies any acute distress or pain at this time. Breathing is even and unlabored. Needs addressed. Call light in hand, fall precautions in place.
[2017-03-31] MEDS: NITROGLYCERIN 1 INCH (GM) OINT. TP SCH ×3 (05:57→21:20)
[2017-03-31] MEDS: metroNIDAZOLE 500 MG TABLET PO SCH ×3 (05:57→21:20)
[2017-03-31] MEDS: INSULIN REGULAR, HUMAN 100 UNITS/ML, 10 ML VIAL (novoLIN R) SUBCUT PRN ×4 (06:02→21:38)
--- NOTE | 2017-03-31 06:35 | NUR ---
Closing Notes Patient resting in bed with eyes closed, easily aroused. Patient denies any acute distress or pain at this time. Breathing is even and unlabored. IV site patent/clean/dry, no S/S infection/infiltration noted. Redness around face/torso has lessened, redness to bilateral arms remains unchanged. Needs addressed throughout shift. Call light in hand, fall precautions in place. Will continue to monitor for changes and safety, and endorse all patient care/needs to oncoming nurse.
--- NOTE | 2017-03-31 08:00 | NUR ---
OPENING NOTE PATIENT IS AWAKE AND ALERT. SKIN APPEARS INFLAMED ON ARMS AND UPPER BODY. PATIENT DENIES NAUSEA, ABD PAIN, SHORTNESS OF BREATH.
[2017-03-31 08:08] VITALS: BP_SYST 102
[2017-03-31] MEDS ORDERED: LISINOPRIL 5 MG TABLET PO SCH (09:00)
[2017-03-31] MEDS: LEVOTHYROXINE SODIUM 0.025 MG TABLET PO SCH (09:27)
[2017-03-31] MEDS: CALCIUM 600/VIT D PO SCH (09:27)
[2017-03-31] MEDS: ASPIRIN 81 MG TABLET(ECOTRIN) PO SCH (09:27)
[2017-03-31] MEDS: LOSARTAN POTASSIUM 50 MG TABLET (COZAAR) PO SCH (09:27)
--- NOTE | 2017-03-31 09:27 | NUR ---
Nutrition Update Pacheco Scale 18 noted. Pt admitted for angina, UTI. Diet: [facility] BMI: 26.7 kg/m2 RD to follow per nutrition care standards.
[2017-03-31] MEDS: LIPASE/PROTEASE/AMYLASE 1 CAP PO SCH (09:28)
[2017-03-31] MEDS: buPROPion HCL 150 MG XL TAB PO SCH (09:28)
[2017-03-31] MEDS: PANTOPRAZOLE SODIUM 40 MG TAB PO SCH (09:28)
[2017-03-31] MEDS: CARVEDILOL 6.25 MG TABLET (COREG) PO SCH ×2 (09:29→21:20)
[2017-03-31] MEDS: ICOSAPENT ETHYL PO SCH ×4 (09:32→21:22)
--- NOTE | 2017-03-31 10:19 | NUR ---
PATIENT SEEN BY MEHRAN AQUINO
[2017-03-31 12:18] VITALS: BP_SYST 110
[2017-03-31] MEDS: cefTRIAXone 1 GM in D5W 50 ML IV SCH (13:10)
--- NOTE | 2017-03-31 14:56 | NUR ---
PATIENT SITTING UPRIGHT IN BED, CHATTING ON PHONE. DENIES PAIN OR DISTRESS. MEDICATED ORDERED. TOLERATING DIET, NO SOB OR WEAKNESS.
[2017-03-31 16:44] VITALS: BP_SYST 111
[2017-03-31] MEDS: GENTAMICIN 100 mg/50 mL NS 50 ML IV SCH (19:43)
[2017-03-31 20:00] VITALS: BP_SYST 116
--- NOTE | 2017-03-31 20:00 | NUR ---
Initial Notes Received patient resting in bed watching TV. alert, awake, oriented. Denies any acute distress or pain at this time. Vital signs stable. Breathing is even and unlabored on room air. IV site patent/clean/dry. Blotches of redness noted on patient's torso and extremities. Educated patient on use of call light for assistance and fall precautions, patient verbalized understanding. Needs addressed. Call light in hand.
[2017-03-31] MEDS: PREGABALIN 25 MG CAPSULE (LYRICA) PO SCH (21:20)
[2017-03-31] MEDS: SIMVASTATIN 40 MG TABLET PO SCH (21:20)
[2017-03-31] MEDS: QUEtiapine FUMARATE 100 MG TABLET PO SCH (21:20)
[2017-03-31] MEDS: MIRTAZAPINE 15 MG TABLET PO SCH (21:20)
--- NOTE | 2017-03-31 22:00 | NUR ---
Rounds Patient resting in bed watching TV. No acute distress or pain reported. Breathing is even and unlabored. Snacks given, needs addressed. Call light in hand, will continue to monitor.
[2017-03-31 23:37] VITALS: BP_SYST 108
--- NOTE | 2017-04-01 | NUR ---
Rounds Patient resting in bed with eyes closed, easily aroused. Patient denies any acute distress, pain, or needs at this time. Breathing is even and unlabored. Call light in hand, fall precautions in place.
--- NOTE | 2017-04-01 02:00 | NUR ---
Rounds Patient resting in bed with eyes closed. No acute distress noted, breathing is even and unlabored. Call light in hand, will continue to monitor.
[2017-04-01 03:57] VITALS: BP_SYST 113
--- NOTE | 2017-04-01 04:00 | NUR ---
Rounds Patient resting in bed with eyes closed, easily aroused. Patient denies any acute distress or pain at this time. Breathing is even and unlabored. Patient denies any needs. Call light in hand, fall precautions in place. Will continue to monitor.
[2017-04-01] MEDS: NITROGLYCERIN 1 INCH (GM) OINT. TP SCH ×3 (05:33→21:19)
[2017-04-01] MEDS: metroNIDAZOLE 500 MG TABLET PO SCH ×2 (05:33→14:40)
[2017-04-01] MEDS: INSULIN REGULAR, HUMAN 100 UNITS/ML, 10 ML VIAL (novoLIN R) SUBCUT PRN ×4 (05:42→20:30)
--- NOTE | 2017-04-01 06:38 | NUR ---
Closing Notes Patient resting in bed with eyes closed, easily aroused. Patient denies any acute distress or pain at this time. Breathing is even and unlabored. IV site patent/clean/dry, no S/S infection/infiltration noted. Needs addressed throughout shift. Call light in hand, fall precautions in place. Will continue to monitor for changes and safety, and endorse all patient care/needs to oncoming nurse.
[2017-04-01 07:46] VITALS: BP_SYST 132
--- NOTE | 2017-04-01 08:00 | NUR ---
am assessment received pt in bed a/ox4, c/ of pain in hand 10/11 will notify md.not in acute distress. denies chest pain at this time.. Vital signs stable. resp even and unlabored . IV site patent/clean/dry. Blotches of redness noted on patient's torso and extremities. Educated patient on use of call light for assistance and fall precautions, patient verbalized understanding. Needs attended. will continue to monitor
[2017-04-01] MEDS: ASPIRIN 81 MG TABLET(ECOTRIN) PO SCH (09:12)
[2017-04-01] MEDS: CALCIUM 600/VIT D PO SCH (09:12)
[2017-04-01] MEDS: LEVOTHYROXINE SODIUM 0.025 MG TABLET PO SCH (09:13)
[2017-04-01] MEDS: PANTOPRAZOLE SODIUM 40 MG TAB PO SCH (09:13)
[2017-04-01] MEDS: LOSARTAN POTASSIUM 50 MG TABLET (COZAAR) PO SCH (09:14)
[2017-04-01] MEDS: CARVEDILOL 6.25 MG TABLET (COREG) PO SCH ×2 (09:15→20:28)
[2017-04-01] MEDS: LIPASE/PROTEASE/AMYLASE 1 CAP PO SCH (09:15)
[2017-04-01] MEDS: ICOSAPENT ETHYL PO SCH ×3 (09:16→17:19)
--- NOTE | 2017-04-01 09:36 | NUR ---
meds due meds given as ordered.pttook it . not in acute distress. resting comfortably
[2017-04-01] MEDS: buPROPion HCL 150 MG XL TAB PO SCH (09:42)
[2017-04-01] MEDS ORDERED: ACETAMINOPHEN 325 MG SUPP.RECT RC PRN (09:45)
[2017-04-01] MEDS ORDERED: MILK OF MAGNESIA 30 ML UDC PO PRN (09:45)
--- NOTE | 2017-04-01 11:30 | NUR ---
ROUNDS PT STABLE NOT IN ACUTE DISTRESS. AMBULATED IN HALLWAY WITH STEADY GAIT
[2017-04-01 11:34] VITALS: BP_SYST 123
--- NOTE | 2017-04-01 14:14 | NUR ---
md called called dr almonte and informed about pt' Blotches of redness noted on patient's torso and extremities. new order received for d/c Rocephin. asked dr almonte about flagyl he stated he want to continue that. urine c/s report informed to dr lew almonte.new order received for antibiotic. carried out.
[2017-04-01] MEDS: HYDROCORTISONE 1%, 28.35 GM TOPICAL CREAM TP PRN (14:42)
[2017-04-01 15:12] VITALS: BP_SYST 113
[2017-04-01] MEDS ORDERED: AMIKACIN SULFATE 500 MG in D5W 100 ML IV ONE (17:00)
--- NOTE | 2017-04-01 17:30 | NUR ---
MD VISIT SEEN BY DR NEY HOWARD SEEN PT BLOTCHES REDNESS ON HAND AND LEGS . NEW ORDER RECEIVED
--- NOTE | 2017-04-01 18:00 | NUR ---
ROUNDS PT STABLE PT DEVELOPED SKIN TEAR ON RT INNER THIGH PICTURE TAKEN. NON ADHERENT DRESSING APPLIED . PT STABLE NOT IN ACUTE DISTRES. WILL ONTINUE TOMONITOR
--- NOTE | 2017-04-01 19:30 | NUR ---
CLSOING NOTES PT STABLE RESTING COMFORTABLY. DENIES ANY PAIN OR DISCOMFORT AT THIS TIME. DUE ANTIBIOTIC GIVEN ORDERED. SAFETY AND FALL PRECAUTIONS MAINYAINED REPORT GIVEN TO PIPPA NURSE.
[2017-04-01 19:50] VITALS: BP_SYST 113
--- NOTE | 2017-04-01 20:00 | NUR ---
NOTES; SEEN PT IN BED, A/A/O X4. NO ACUTE DISTRESS NOTED. VITAL SIGNS STABLE, AFEBRILE. IV SALINE LOCK TO THE RT HAND, GAUGE 22, PATENT. NO SIGNS OF INFECTION NOTED ON IV SITE. BLOTCHES OF REDDNES NOTED ALL OVER BODY. PT DENIES ANY PAIN AT THIS TIME. BED LOCKED AND IN LOW POSITION. SIDE RAILS UP X3. CALL LIGHT WITHIN REACH. CONTACT ISOLATION PRECAUTION INPROGRESS. WILL CONTINUE TO MONITOR.
[2017-04-01] MEDS ORDERED: HYDROcodone/ACETAMIN 5-325 MG TAB (NORCO/ VICODIN) PO PRN (20:15)
[2017-04-01] MEDS: QUEtiapine FUMARATE 100 MG TABLET PO SCH (20:28)
[2017-04-01] MEDS: MIRTAZAPINE 15 MG TABLET PO SCH (20:28)
[2017-04-01] MEDS: SIMVASTATIN 40 MG TABLET PO SCH (20:28)
[2017-04-01] MEDS: PREDNISONE 20 MG TABLET PO SCH (20:28)
--- NOTE | 2017-04-01 21:22 | NUR ---
NOTES; NORCO 5-325MG PO 1 TAB ADMINISTERED FOR 5/10 HAND PAIN. PT TOLERATED MEDICATION WELL. WILL CONTINUE TO MONITOR.
--- NOTE | 2017-04-01 23:53 | NUR ---
paged paged for Dr Castillo, dialed pager .
[2017-04-01] MEDS: ZOLPIDEM TARTRATE 5 MG TABLET PO PRN (23:57)
--- NOTE | 2017-04-01 23:59 | NUR ---
NOTES; AMBIEN 5MG PO ADMINISTERED FOR INSOMNIA
--- NOTE | 2017-04-02 | NUR ---
NOTES; PT C/O 3/10 HEADACHE, AND 4/10 HAND PAIN. PT DENIES ANY CHEST PAIN AT THIS TIME. VITAL SIGNS STABLE. PRN PAIN MEDICATION NOT DUE. DR. LANDRY PAGED TO NOTIFIED.
[2017-04-02 00:07] VITALS: BP_SYST 130
--- NOTE | 2017-04-02 00:35 | NUR ---
NOTES; DR LANDRY NEVER CALLED [facility] AFTER PAGING TWICE. PT APPEARED TO BE SLEEPING AFTER AMBIEN MEDICATION WAS GIVEN. SAFETY MEASURES IN PROGRESS.
--- NOTE | 2017-04-02 02:30 | NUR ---
NOTES; PT APPEARED TO BE SLEEPING, EYES CLOSED RESPIRATION EVEN AND UNLABORED. NO ACUTE DISTRESS NOTED. SAFETY MEASURES IN PROGRESS.
[2017-04-02 04:15] VITALS: BP_SYST 105
--- NOTE | 2017-04-02 04:18 | NUR ---
NOTES; PT APPEARED TO BE SLEEPING, EYES CLOSED RESPIRATION EVEN AND UNLABORED. NO ACUTE DISTRESS NOTED. SAFETY MEASURES IN PROGRESS.
[2017-04-02] MEDS: INSULIN REGULAR, HUMAN 100 UNITS/ML, 10 ML VIAL (novoLIN R) SUBCUT PRN ×4 (06:12→21:45)
[2017-04-02] MEDS: NITROGLYCERIN 1 INCH (GM) OINT. TP SCH (06:14)
--- NOTE | 2017-04-02 06:33 | NUR ---
NOTES; PT IS SLEEPING, EASILY AROUSED. NO ACUTE DISTRESS NOTED. BLOOD SUGAR 378, INSULIN SLIDING SCALE ADMINISTERED ORDERED. PT DENIES ANY TAYO AT THIS TIME. ALL NEEDS ATTENDED. SAFETY MEASURES MAINTAINED.
[2017-04-02 06:54] LABS: BASOPHILS % (AUTO) 0.1 % (0.0-2.0); EOSINOPHILS % (AUTO) 0.2 % (0.0-4.0); HEMATOCRIT 30.6 % (36-48); HEMOGLOBIN 10.1 g/dL (12.0-16.0); LYMPHOCYTES # (AUTO) 1.2 K/uL (1.0-5.5); LYMPHOCYTES % (AUTO) 24.2 % (20.5-51.5); MEAN CORPUSCULAR HEMOGLOBIN 29 pg (27-31); MEAN CORPUSCULAR HGB CONC 33 % (32-36); MEAN CORPUSCULAR VOLUME 88 fL (79.0-98.0); MONOCYTES # (AUTO) 0.1 K/uL (0.0-1.0); MONOCYTES % (AUTO) 2.6 % (1.7-9.3); NEUTROPHILS # (AUTO) 3.5 K/uL (1.8-7.7); NEUTROPHILS % (AUTO) 72.9 % (40.0-70.0); PLATELET COUNT (AUTO) 268 K/uL (130-430); RED BLOOD CELL COUNT(AUTO) 3.49 MIL/uL (4.2-6.2); RED CELL DISTRIBUTION WIDTH 13.1 % (9.0-15.0); WHITE BLOOD COUNT (AUTO) 4.8 K/uL (4.8-10.8)
[2017-04-02 07:15] LABS: ALANINE AMINOTRANSFERASE 25 U/L (12-78); ALBUMIN 2.9 g/dL (3.4-4.8); ANION GAP 8 (5-15); ASPARTATE AMINOTRANSFERASE 19 U/L (10-37); CALCIUM 9.3 mg/dL (8.4-11.0); CHLORIDE 105 mmol/L (98-107); CREATININE 0.97 mg/dL (0.55-1.30); SODIUM SERUM 135 mmol/L (136-145); TOTAL BILIRUBIN 0.1 mg/dL (0.0-1.0); UREA NITROGEN, BLOOD 19 mg/dL (8-21)
[2017-04-02 07:21] LABS: GLUCOSE 413 mg/dL (70-99)
[2017-04-02 07:58] VITALS: BP_SYST 161
--- NOTE | 2017-04-02 08:00 | NUR ---
NOTE PT SITTING UP IN BED EATING HER BREAKFAST. NO SOB/RESP DISTRESS OR CHEST PAIN/DISCOMFORT AT THIS TIME. PT MAINTAINED WITH SAFETY/CONTACT PRECAUTIONS FOR ESBL/MDRO/E-COLI IN URINE AT THIS TIME. RIGHT HAND IV SITE PATENT AND BENIGN AT THIS TIME. BODY RASH IS DECREASING PER PT. PT REQUESTED NITRO PASTE PATCH ON RIGHT CHEST WALL BE DC'D, IT IS CAUSING HEADACHE AND PT DENIES ANY CHEST PAIN AT THIS TIME. CALL LIGHT WITHIN REACH.
[2017-04-02] MEDS: PANTOPRAZOLE SODIUM 40 MG TAB PO SCH (08:57)
[2017-04-02] MEDS: CALCIUM 600/VIT D PO SCH (08:57)
[2017-04-02] MEDS: LEVOTHYROXINE SODIUM 0.025 MG TABLET PO SCH (08:57)
[2017-04-02] MEDS: LOSARTAN POTASSIUM 50 MG TABLET (COZAAR) PO SCH (08:58)
[2017-04-02] MEDS: PREDNISONE 20 MG TABLET PO SCH (08:58)
[2017-04-02] MEDS: buPROPion HCL 150 MG XL TAB PO SCH (08:59)
[2017-04-02] MEDS: CARVEDILOL 6.25 MG TABLET (COREG) PO SCH ×2 (08:59→21:26)
--- NOTE | 2017-04-02 10:00 | NUR ---
NOTE DR SANDOVAL ON THE FLOOR AND ASSESSMENT OF PT COMPLETED AT THIS TIME. ORDERS WRITTEN. PT DENIES ANY NEEDS AT THIS TIME. PT RESTING IN BED WATCHING TELEVISION AT THIS TIME. CALL LIGHT WITHIN REACH.
--- NOTE | 2017-04-02 10:20 | NUR ---
NOTE PT'S TELE UNIT DC'D AND RETURNED TO DRIVER MEDIC AT THIS TIME.
[2017-04-02 12:00] VITALS: BP_SYST 156
--- NOTE | 2017-04-02 12:50 | NUR ---
NOTE PT SITTING UP IN BED AND EATING HER LUNCH. DENIES ANY NEEDS AT THIS TIME. PT AMBULATING WITH CANE IN HALLWAY WITH STEADY GAIT. DENIES ANY CHEST PAIN OR DISCOMFORT AT THIS TIME. CALL LIGHT WITHIN REACH AT THIS TIME.
--- NOTE | 2017-04-02 14:20 | NUR ---
NOTE PT RESTING IN BED AT THIS TIME. NO CHEST PAIN/DISCOMFORT NOTED. DENIES ANY HEADACHE NOTED AT THIS TIME. CALL LIGHT WITHIN REACH.
[2017-04-02] MEDS: AMIKACIN SULFATE 500 MG in NS 100 ML IV SCH (16:14)
--- NOTE | 2017-04-02 16:20 | NUR ---
note Pt's son and friend at bedside. Questions/concerns were answered at this time. Pt requested dressing to skin tear on right lower inner thigh. Applied 4x4 gauze and tegaderm dressing. Pt denies any needs at this time. Call light within reach.
[2017-04-02 17:18] VITALS: BP_SYST 145
--- NOTE | 2017-04-02 18:05 | NUR ---
note Pt sitting up in bed eating her dinner. Right hand iv infiltrated and tender to touch. IV was dc'd and cool pack applied at this time. Pt denies any severe chest pain/discomfort at this time. No SOB/Resp distress noted at this time. Pt denies any needs at this time. Call light within reach. Pt has been ambulating in halls with cane and steady gait. Call light within reach at this time.
[2017-04-02] MEDS: HYDROCORTISONE 1%, 28.35 GM TOPICAL CREAM TP PRN (18:57)
--- NOTE | 2017-04-02 19:25 | NUR ---
CHANGE OF SHIFT: pt. ambulating in the hallway when received.
[2017-04-02 20:00] VITALS: BP_SYST 141
--- NOTE | 2017-04-02 20:00 | NUR ---
NOTES: pt. back to her room, denies any pain at this time. observed on contact isolation for ESBL of urine. noted skin with big patches of rash secondary to antibiotic reaction all over her body. IV lock on rt. hand. awake, alert and oriented. no chest pain noted. VS checked. call light within reach.
[2017-04-02] MEDS: SIMVASTATIN 40 MG TABLET PO SCH (21:25)
[2017-04-02] MEDS: MIRTAZAPINE 15 MG TABLET PO SCH (21:25)
[2017-04-02] MEDS: QUEtiapine FUMARATE 100 MG TABLET PO SCH (21:30)
--- NOTE | 2017-04-02 21:40 | NUR ---
NOTES: schedule meds given. Blood sugar checked with sliding scale coverage given.
[2017-04-02] MEDS: ZOLPIDEM TARTRATE 5 MG TABLET PO PRN (23:32)
--- NOTE | 2017-04-02 23:35 | NUR ---
NOTES: pt. still awake and asked for sleeping pill. needs attended.
[2017-04-03 00:16] VITALS: BP_SYST 154
--- NOTE | 2017-04-03 02:00 | NUR ---
NOTES: pt. sleeping when made rounds. no further complaint.
--- NOTE | 2017-04-03 04:00 | NUR ---
NOTES: condition unchanged. continue to monitor.
[2017-04-03 04:12] VITALS: BP_SYST 144
--- NOTE | 2017-04-03 06:00 | NUR ---
NOTES: still sleeping, no complaints.
--- NOTE | 2017-04-03 06:40 | NUR ---
CLOSING NOTES: blood sugar checked 268 with sliding scale coverage. awakened and went to restroom using cane.
[2017-04-03] MEDS: INSULIN REGULAR, HUMAN 100 UNITS/ML, 10 ML VIAL (novoLIN R) SUBCUT PRN ×4 (06:58→20:13)
--- NOTE | 2017-04-03 07:30 | NUR ---
endorsed pt. to incoming shift with nurse Maggy. observed on contact isolation.
[2017-04-03 07:36] VITALS: BP_SYST 147
--- NOTE | 2017-04-03 08:00 | NUR ---
NOTE PT FINISHED HER BREAKFAST AND NOW RESTING IN BED. DENIES ANY NEEDS AT THIS TIME. NO SOB/RESP DISTRESS OR PAIN/DISCOMFORT NOTED. IV IN RIGHT AC SITE IS PATENT AND INTACT AT THIS TIME. IV IS SALINE LOCKED AT THIS TIME. CALL LIGHT WITHIN REACH.
[2017-04-03] MEDS: CALCIUM 600/VIT D PO SCH (08:05)
[2017-04-03] MEDS: buPROPion HCL 150 MG XL TAB PO SCH (08:05)
[2017-04-03] MEDS: PANTOPRAZOLE SODIUM 40 MG TAB PO SCH (08:05)
[2017-04-03] MEDS: LOSARTAN POTASSIUM 50 MG TABLET (COZAAR) PO SCH (08:06)
[2017-04-03] MEDS: CARVEDILOL 6.25 MG TABLET (COREG) PO SCH ×2 (08:06→20:07)
[2017-04-03] MEDS: LEVOTHYROXINE SODIUM 0.025 MG TABLET PO SCH (08:06)
[2017-04-03] MEDS: PREDNISONE 20 MG TABLET PO SCH ×2 (08:09→15:40)
--- NOTE | 2017-04-03 10:45 | NUR ---
NOTE PT RESTING IN BED. NO NEEDS NOTED AT THIS TIME. PT AMBULATES IN THE ROOM AND HALLS WITH HER CANE WITH STEADY GAIT. CALL LIGHT WITHIN REACH. NO NEEDS NOTED.
[2017-04-03 12:24] VITALS: BP_SYST 158
--- NOTE | 2017-04-03 13:00 | NUR ---
NOTE PT RESTING IN ROOM. AMBULATES IN ROOM AND TO RESTROOM WITH CANE AND STEADY GAIT. DENIES ANY CHEST PAIN/DISCOMFORT ALL SHIFT. NO NEEDS NOTED. CALL LIGHT WITHIN REACH.
[2017-04-03] MEDS: HYDROCORTISONE 1%, 28.35 GM TOPICAL CREAM TP PRN (15:41)
--- NOTE | 2017-04-03 15:50 | NUR ---
Note Dr Barajas in the room assessing pt at this time. Pt's daughter at bedside clarification of medications discussed with MD and orders are being put in at this time. Questions/concerns were discussed with MD by pt's daughter Keena. pt now resting in bed. No needs noted at this time. Call light within reach.
[2017-04-03] MEDS: metFORMIN HCL 500 MG TABLET PO SCH (16:23)
[2017-04-03] MEDS: AMIKACIN SULFATE 500 MG in NS 100 ML IV SCH (16:23)
[2017-04-03 16:52] VITALS: BP_SYST 181
--- NOTE | 2017-04-03 17:00 | NUR ---
NOTE PT SITTING UP IN BED AND IVPB ANTIBIOTIC INFUSING WELL THROUGH RIGHT FOREARM IV SITE AT THIS TIME. CALL LIGHT WITHIN REACH.
--- NOTE | 2017-04-03 18:55 | NUR ---
NOTE PT SITTING ON SIDE OF BED AND EATING HER DINNER. NO SOB/RESP DISTRESS OR PAIN/DISCOMFORT NOTED AT THIS TIME. IV IN RIGHT AC INTACT AND PATENT AT THIS TIME. SALINE LOCKED AT THIS TIME. NO NEEDS NOTED. CALL LIGHT WITHIN REACH.
--- NOTE | 2017-04-03 19:30 | NUR ---
PM Notes Received patient on bed awake, alert and verbally responsive watching TV at this time. No sign of respiratory distress and no complain of pain or discomfort noted. IV site saline lock on right posterior arm is intact with no sign of infiltration noted. Will continue to monitor. Call light within reach.
[2017-04-03 20:00] VITALS: BP_SYST 142
[2017-04-03] MEDS: SIMVASTATIN 40 MG TABLET PO SCH (20:07)
[2017-04-03] MEDS: MIRTAZAPINE 15 MG TABLET PO SCH (20:07)
[2017-04-03] MEDS: QUEtiapine FUMARATE 100 MG TABLET PO SCH (20:08)
--- NOTE | 2017-04-03 20:24 | NUR ---
Hyperglycemia Paged Dr. Barajas and he called back. Reported the FSBS of the patient with result of 425 mg/dl.. Given Regular Insulin 12 units SQ and Levemir 15 units SQ with no new order. Patient made aware.
[2017-04-03] MEDS ORDERED: INSULIN GLARGINE 100 UNITS/ML 10 ML VIAL SUBCUT SCH (21:00)
[2017-04-03] MEDS ORDERED: PREGABALIN 25 MG CAPSULE (LYRICA) PO SCH (21:00)
[2017-04-03] MEDS: NACL 0.9% 1,000 ML IV SCH (21:55)
[2017-04-04 00:04] VITALS: BP_SYST 153
--- NOTE | 2017-04-04 00:30 | NUR ---
Rounds Notes Patient on bed awake, alert and verbally responsive watching TV at this time. No s/sx. of hyperglycemia IVF infusing well noted. Will continue to monitor. Call light within reach.
[2017-04-04 04:16] VITALS: BP_SYST 150
--- NOTE | 2017-04-04 04:33 | NUR ---
Rounds Notes Patient on bed sleeping noted with no sign of respiratory distress and no sign or complain of pain noted. Will continue to monitor. Call light within reach.
[2017-04-04 06:03] LABS: BASOPHILS % (AUTO) 0.1 % (0.0-2.0); EOSINOPHILS % (AUTO) 0.2 % (0.0-4.0); HEMATOCRIT 33.2 % (36-48); LYMPHOCYTES # (AUTO) 2.1 K/uL (1.0-5.5); LYMPHOCYTES % (AUTO) 22.2 % (20.5-51.5); MEAN CORPUSCULAR HEMOGLOBIN 29 pg (27-31); MEAN CORPUSCULAR HGB CONC 33 % (32-36); MEAN CORPUSCULAR VOLUME 88 fL (79.0-98.0); MONOCYTES # (AUTO) 0.4 K/uL (0.0-1.0); MONOCYTES % (AUTO) 4.3 % (1.7-9.3); NEUTROPHILS # (AUTO) 7.1 K/uL (1.8-7.7); NEUTROPHILS % (AUTO) 73.2 % (40.0-70.0); PLATELET COUNT (AUTO) 377 K/uL (130-430); RED BLOOD CELL COUNT(AUTO) 3.79 MIL/uL (4.2-6.2); WHITE BLOOD COUNT (AUTO) 9.6 K/uL (4.8-10.8)
[2017-04-04] MEDS: metFORMIN HCL 500 MG TABLET PO SCH ×3 (06:31→17:55)
[2017-04-04] MEDS: INSULIN REGULAR, HUMAN 100 UNITS/ML, 10 ML VIAL (novoLIN R) SUBCUT PRN ×3 (06:35→18:02)
--- NOTE | 2017-04-04 06:37 | NUR ---
Closing Notes Patient on bed, awake, alert and verbally responsive watching TV noted. No sign of respiratory distress and no complain of pain or discomfort noted. No s/sx. of hyperglycemia noted. All needs attended and met by staff. Call light within reach.
[2017-04-04 06:57] LABS: ANION GAP 11 (5-15); CALCIUM 9.7 mg/dL (8.4-11.0); CHLORIDE 102 mmol/L (98-107); CREATININE 1.05 mg/dL (0.55-1.30); GLUCOSE 352 mg/dL (70-99); POTASSIUM 4.1 mmol/L (3.5-5.1); SODIUM SERUM 136 mmol/L (136-145); UREA NITROGEN, BLOOD 22 mg/dL (8-21)
--- NOTE | 2017-04-04 08:00 | NUR ---
AM SHIFT NOTE: RECEIVED PT A/O X4, C/O CHEST PAIN AND UTI, , IV AT RIGHT AC, SKIN WITH SOME BRUISES ON HER ARMS,AMBULATED WITH A CANE, VOIDING,ISOLATION FOR MRSA/NARES, BED AT LOW POSITION, CALL LIGHT WITHIN REACH.
[2017-04-04] MEDS ORDERED: PREDNISONE 10 MG TABLET PO SCH (09:00)
--- NOTE | 2017-04-04 09:50 | NUR ---
ROUNDING: ROUTINE MEDS GIVEN, PT TOLERATED WELL.
[2017-04-04] MEDS: CALCIUM 600/VIT D PO SCH (10:11)
[2017-04-04] MEDS: PANTOPRAZOLE SODIUM 40 MG TAB PO SCH (10:12)
[2017-04-04] MEDS: buPROPion HCL 150 MG XL TAB PO SCH (10:12)
[2017-04-04] MEDS: LEVOTHYROXINE SODIUM 0.025 MG TABLET PO SCH (10:13)
[2017-04-04] MEDS: LOSARTAN POTASSIUM 50 MG TABLET (COZAAR) PO SCH (10:14)
[2017-04-04] MEDS: NACL 0.9% 1,000 ML IV SCH (10:50)
[2017-04-04] MEDS: CARVEDILOL 6.25 MG TABLET (COREG) PO SCH (11:10)
[2017-04-04 11:27] VITALS: BP_SYST 147
--- NOTE | 2017-04-04 12:40 | NUR ---
ROUNDING: PT HAD LUNCH WELL.
--- NOTE | 2017-04-04 12:44 | NUR ---
DC Planning: Called Dr. Awan at his office requesting dc planing to home with hh vs. snf. . ordered to dc pt. today and to f/u with him in one week. made aware pt. is on Amikacin IV q24 hr. . stated " pt has enough ABX and does not need it any more." and no home health f/u order. Frida, charge nurse made aware and to verify med rec. with the md.
--- NOTE | 2017-04-04 14:47 | NUR ---
Dietitian Recommendations *Recommend [facility] 45 gm Carbohydrate Cholesterol Controlled diet. Please see Nutrition Assessment for details.
[2017-04-04 15:32] VITALS: BP_SYST 156
--- NOTE | 2017-04-04 16:40 | NUR ---
ROUNDING: ROUTINE MEDS GIVEN.
[2017-04-04 16:45] VITALS: BP_SYST 156
[2017-04-04] MEDS: AMIKACIN SULFATE 500 MG in NS 100 ML IV SCH (17:55)
--- NOTE | 2017-04-04 19:10 | NUR ---
D/C Patient Patient given medication reconciliation form and D/C instructions. Exit Care provided. Patient verbalized understanding. MD discussed with patient the results and treatment provided. Ambulatory with steady gait for discharge to home. Patient in stable condition, ID band removed. IV catheter removed, intact and dressing applied, no active bleeding. Rx of given. Patient educated on pain management. All belongings sent with patient, there was a small skin tear due to tape removal, applied dressing and instructed to keep it dry for two days. Her daughter/ Megan at bedside, d/c'd via wheelchair to home via private car.
--- NOTE | 2017-04-04 19:41 | NUR ---
Pt left a cane; CALLED PT'S DAUGHTER JOHN [phone], AND STATED SHE WILL CAME TO TOE FORMER STITCHDOWNS IT LATER, LEFT AT NURSING STATION.
--- NOTE | 2017-04-07 11:10 | NUR ---
Discharge Follow Up Phone Call [employer] phoned the number listed for patient, . It was not a working number. [employer] phoned patient's daughter, Keena, , with whom she lives. Keena stated that patient had been irritable yesterday and Keena had not seen her before she left for work today. Patient visited the ED on 04/05/17 and that seemed to resolve the nausea. Patient also visited the PCP on 04/05/17, Dr Awan. Patient reported to the daughter that Dr Awan was angry that patient had not been discharged with antibiotics. ROOFING CONTRACTOR reported that Dr Awan had ordered the discharge and had stated to Case Management that patient no longer needed antibiotics and that nursing was told to do a med rec prior to discharge. Also, if patient was to be on oral antibiotics, Dr Awan would have then prescribed them from his office the day after discharge when he saw the patient. Patient has an SS worker due today that Keena will follow up with. ROOFING [employer]OR offered support for caregiving stress.
== END 2017-04-04 19:00 | disposition home or self-care (01) | DRG 690 ==
LOC: SED 03:11 → STU 05:09 → SMU 04-02 10:18
PROVIDERS: ADMIT Internal Medicine Infectious Disease; ATTEND Internal Medicine Infectious Disease
DX: N39.0 Urinary tract infection, site not specified (principal); E11.40 Type 2 diabetes mellitus with diabetic neuropathy, unspecified; D64.9 Anemia, unspecified; I10 Essential (primary) hypertension; F32.9 Major depressive disorder, single episode, unspecified; E03.9 Hypothyroidism, unspecified; G89.29 Other chronic pain; R07.89 Other chest pain; K58.9 Irritable bowel syndrome, unspecified; F41.9 Anxiety disorder, unspecified; K52.9 Noninfective gastroenteritis and colitis, unspecified; M81.0 Age-related osteoporosis without current pathological fracture; L30.9 Dermatitis, unspecified; E78.5 Hyperlipidemia, unspecified; Z16.12 Extended spectrum beta lactamase (ESBL) resistance; Z90.49 Acquired absence of other specified parts of digestive tract; Z88.8 Allergy status to other drugs, medicaments and biological substances
CPT/HCPCS: 36415; 71010; 80048; 80053; 80061; 81000-TC; 82550-TC; 82962; 83605; 83880; 84443-TC; 84484; 85025; 85730-TC; 87040-TC; 87086; 87186-TC; 93005; 93306; 99285; J0278; J0696; J1580; J1815; J7030; J7050; J7060; J7512; Q0163

== ENCOUNTER 2017-04-05 20:54 | Emergency (ER) | payer OTHER, MEDICAID ==
[2017-04-04 14:32] VITALS: Ht 160 cm; Wt 66.7 kg
[~2017-04-05] VITALS: Ht 160 cm; Wt 66.7 kg
[~2017-04-05 20:54] MED LIST changes: +ALEN70TA27 PO; +AMOX-423 PO; +ATEN-41 PO; +CALC-226 PO; +CALC-995 PO; +CEFU250T85 PO; +DOCU250C PO; +ESOM40CA PO; +ESOM40CA53 PO; +ESOM40SU PO; +FENO145T PO; +GLIP5TAB13 PO; +KLO.5 PO; +LEVO250T20 PO; +MECL-110 PO; +PRO20 PO; +ROSU5TAB3 PO; +TRAM50TA92 PO
[2017-04-05 21:10] VITALS: BP 131/61; PULSE 67; RESP 18; TEMP 97.9; O2SAT 96
[2017-04-05 23:14] LABS: BILIRUBIN,URINE NEGATIVE (NEGATIVE); BLOOD, URINE NEGATIVE (NEGATIVE); CLARITY/URINE CLEAR (CLEAR); COLOR,URINE YELLOW (YELLOW); GLUCOSE,URINE NEGATIVE (NEGATIVE); KETONES,URINE NEGATIVE (NEGATIVE); LEUKOCYTE ESTERASE ,URINE NEGATIVE (NEGATIVE); NITRITE, URINE NEGATIVE (NEGATIVE); PROTEIN URINE NEGATIVE (NEGATIVE); UROBILINOGEN,URINE 0.2 (0.2-1.0)
[2017-04-05 23:49] LABS: BASOPHILS % (AUTO) 0.2 % (0.0-2.0); EOSINOPHILS # (AUTO) 0.2 K/uL (0.0-0.4); EOSINOPHILS % (AUTO) 1.8 % (0.0-4.0); HEMATOCRIT 33.3 % (36-48); HEMOGLOBIN 11.3 g/dL (12.0-16.0); LYMPHOCYTES # (AUTO) 2.6 K/uL (1.0-5.5); LYMPHOCYTES % (AUTO) 25.8 % (20.5-51.5); MEAN CORPUSCULAR HEMOGLOBIN 29 pg (27-31); MEAN CORPUSCULAR HGB CONC 34 % (32-36); MEAN CORPUSCULAR VOLUME 86 fL (79.0-98.0); MONOCYTES # (AUTO) 0.4 K/uL (0.0-1.0); MONOCYTES % (AUTO) 3.9 % (1.7-9.3); NEUTROPHILS # (AUTO) 6.9 K/uL (1.8-7.7); NEUTROPHILS % (AUTO) 68.3 % (40.0-70.0); PLATELET COUNT (AUTO) 391 K/uL (130-430); RED BLOOD CELL COUNT(AUTO) 3.88 MIL/uL (4.2-6.2); RED CELL DISTRIBUTION WIDTH 12.9 % (9.0-15.0); WHITE BLOOD COUNT (AUTO) 10.1 K/uL (4.8-10.8)
[2017-04-05 23:53] LABS: ANION GAP 8 (5-15); CALCIUM 9.1 mg/dL (8.4-11.0); CHLORIDE 103 mmol/L (98-107); CREATININE 1.23 mg/dL (0.55-1.30); GLUCOSE 353 mg/dL (70-99); POTASSIUM 3.8 mmol/L (3.5-5.1); SODIUM SERUM 134 mmol/L (136-145); UREA NITROGEN, BLOOD 28 mg/dL (8-21)
[2017-04-05 23:59] LABS: ALANINE AMINOTRANSFERASE 23 U/L (12-78); ALBUMIN 3.2 g/dL (3.4-4.8); ASPARTATE AMINOTRANSFERASE 16 U/L (10-37); LACTATE DEHYDROGENASE 157 U/L (81-234); LIPASE 111 U/L (73-393); TOTAL BILIRUBIN 0.2 mg/dL (0.0-1.0)
[2017-04-06] MEDS ORDERED: NACL 0.9% 1,000 ML IV ONE
[2017-04-06 02:06] VITALS: BP 127/62; PULSE 69; RESP 17; TEMP 98; O2SAT 98
== END 2017-04-06 02:06 | disposition home or self-care (01) ==
LOC: SED 20:54
DX: K29.70 Gastritis, unspecified, without bleeding (principal); J45.909 Unspecified asthma, uncomplicated; E11.9 Type 2 diabetes mellitus without complications; I10 Essential (primary) hypertension; F03.90 Unspecified dementia, unspecified severity, without behavioral disturbance, psychotic disturbance, mood disturbance, and anxiety; Z90.49 Acquired absence of other specified parts of digestive tract; Z90.710 Acquired absence of both cervix and uterus; Z88.2 Allergy status to sulfonamides; Z88.1 Allergy status to other antibiotic agents; Z88.8 Allergy status to other drugs, medicaments and biological substances
CPT/HCPCS: 36415; 74176; 80053; 81003; 82962; 83615; 83690; 85025; 96360; 99285; J7030 ×2

== ENCOUNTER 2017-08-25 16:34 | Inpatient (IN) | payer OTHER, MEDICAID ==
[~2017-08-25] VITALS: Ht 160 cm; Wt 68.0 kg
[~2017-08-25 16:34] MED LIST changes: -ALEN70TA27 PO; -AMOX-423 PO; -ATEN-41 PO; -BIOF1TAB8 PO; -BIOT25007 PO; -CALC-226 PO; -CEFU250T85 PO; -DOCU-144 PO; -DOCU250C PO; -ESOM40CA PO; -ESOM40SU PO; -FENO145T PO; -GLIP5TAB13 PO; -HYDR12.5 PO; -INSU100V26 SUBCUT; -INSU100V9 SUBCUT; -KLO.5 PO; -LEVO250T20 PO; -LORA-673 PO; -MAGN250T31 PO; -MECL-110 PO; -ONDA4TAB5 PO; -PRO20 PO; -ROSU5TAB3 PO; -TRAM50TA92 PO; -TYC3 PO
[2017-08-25 17:30] VITALS: BP_SYST 139
[2017-08-25] MEDS ORDERED: GLUCOSE 15 GM GEL (in 37.5 GM TUBE) PO PRN ×2 (19:15)
[2017-08-25] MEDS ORDERED: DEXTROSE 50%-WATER 50 ML DISP.SYRIN IVP PRN ×2 (19:15)
[2017-08-25 20:00] VITALS: BP_SYST 111
[2017-08-25] MEDS ORDERED: AMIKACIN SULFATE 500 MG in D5W 100 ML IV ONE (20:00)
[2017-08-25] MEDS ORDERED: ACETAMINOPHEN 650 MG SUPP.RECT RC PRN (21:00)
[2017-08-25] MEDS: INSULIN REGULAR, HUMAN 100 UNITS/ML, 10 ML VIAL (novoLIN R) SUBCUT PRN (21:08)
[2017-08-25] MEDS: ENOXAPARIN SODIUM 40 MG/0.4 ML SYRINGE SUBCUT SCH (21:11)
[2017-08-25 22:53] LABS: BILIRUBIN,URINE NEGATIVE (NEGATIVE); BLOOD, URINE NEGATIVE (NEGATIVE); CLARITY/URINE CLEAR (CLEAR); COLOR,URINE YELLOW (YELLOW); GLUCOSE,URINE 3+ (NEGATIVE); KETONES,URINE TRACE (NEGATIVE); LEUKOCYTE ESTERASE ,URINE TRACE (NEGATIVE); NITRITE, URINE NEGATIVE (NEGATIVE); PROTEIN URINE NEGATIVE (NEGATIVE); UROBILINOGEN,URINE 0.2 (0.2-1.0)
[2017-08-25 23:05] LABS: BACTERIA,URINE MODERATE /HPF (None Seen); RBC,URINE 0-3 /HPF (0-3); YEAST,URINE Moderate /HPF (None Seen)
[2017-08-25] MEDS ORDERED: PREGABALIN 25 MG CAPSULE (LYRICA) PO ONE (23:45)
[2017-08-25] MEDS ORDERED: QUEtiapine FUMARATE 100 MG TABLET PO ONE (23:45)
[2017-08-25] MEDS ORDERED: MIRTAZAPINE 15 MG TABLET PO ONE (23:45)
[2017-08-26 00:46] VITALS: BP_SYST 113
[2017-08-26 06:36] LABS: BASOPHILS % (AUTO) 0.3 % (0.0-2.0); EOSINOPHILS # (AUTO) 0.1 K/uL (0.0-0.4); EOSINOPHILS % (AUTO) 1.3 % (0.0-4.0); HEMATOCRIT 35.8 % (36-48); HEMOGLOBIN 11.3 g/dL (12.0-16.0); LYMPHOCYTES # (AUTO) 3.4 K/uL (1.0-5.5); LYMPHOCYTES % (AUTO) 40.5 % (20.5-51.5); MEAN CORPUSCULAR HEMOGLOBIN 27 pg (27-31); MEAN CORPUSCULAR HGB CONC 32 % (32-36); MEAN CORPUSCULAR VOLUME 84 fL (79.0-98.0); MONOCYTES # (AUTO) 0.5 K/uL (0.0-1.0); MONOCYTES % (AUTO) 6.3 % (1.7-9.3); NEUTROPHILS # (AUTO) 4.3 K/uL (1.8-7.7); NEUTROPHILS % (AUTO) 51.6 % (40.0-70.0); PLATELET COUNT (AUTO) 252 K/uL (130-430); RED BLOOD CELL COUNT(AUTO) 4.26 MIL/uL (4.2-6.2); WHITE BLOOD COUNT (AUTO) 8.3 K/uL (4.8-10.8)
[2017-08-26] MEDS: INSULIN REGULAR, HUMAN 100 UNITS/ML, 10 ML VIAL (novoLIN R) SUBCUT PRN ×4 (06:41→23:00)
[2017-08-26 07:19] LABS: ALANINE AMINOTRANSFERASE 35 U/L (12-78); ALBUMIN 3.1 g/dL (3.4-4.8); ANION GAP 4 (5-15); ASPARTATE AMINOTRANSFERASE 22 U/L (10-37); CHLORIDE 100 mmol/L (98-107); CREATININE 1.13 mg/dL (0.55-1.30); GLUCOSE 275 mg/dL (70-99); POTASSIUM 4.4 mmol/L (3.5-5.1); SODIUM SERUM 131 mmol/L (136-145); TOTAL BILIRUBIN 0.3 mg/dL (0.0-1.0); UREA NITROGEN, BLOOD 38 mg/dL (8-21)
[2017-08-26 08:00] VITALS: BP_SYST 112
[2017-08-26] MEDS ORDERED: OLMESARTAN MEDOXOMIL 20 MG TABLET PO SCH (09:00)
[2017-08-26] MEDS ORDERED: NON-FORMULARY MEDICATION (Esomeprazole Magnesium 40 MG) PO SCH (09:00)
[2017-08-26] MEDS ORDERED: ICOSAPENT ETHYL 1 GM PO SCH (09:00)
[2017-08-26] MEDS ORDERED: [UNRECOGNIZED DRUG - OTHER] PO SCH (09:00)
[2017-08-26] MEDS ORDERED: ASPIRIN 81 MG TABLET(ECOTRIN) PO SCH (09:00)
[2017-08-26] MEDS ORDERED: PROTEASE PO SCH (09:00)
[2017-08-26] MEDS ORDERED: AMYLASE PO SCH (09:00)
[2017-08-26] MEDS ORDERED: LIPASE PO SCH (09:00)
[2017-08-26] MEDS ORDERED: LOSARTAN POTASSIUM 50 MG TABLET (COZAAR) PO ONE ×2 (09:45→10:00)
[2017-08-26] MEDS ORDERED: PANTOPRAZOLE SODIUM 40 MG TAB PO ONE (09:45)
[2017-08-26] MEDS ORDERED: LIPASE/PROTEASE/AMYLASE 1 CAP PO ONE (09:45)
[2017-08-26] MEDS: AMIKACIN SULFATE IV SCH ×2 (09:47→22:50)
[2017-08-26] MEDS: D5W IV SCH ×2 (09:47→22:50)
[2017-08-26] MEDS: buPROPion HCL 150 MG XL TAB PO SCH (09:48)
[2017-08-26] MEDS: metFORMIN HCL 500 MG TABLET PO SCH ×3 (09:48→22:49)
[2017-08-26] MEDS: LEVOTHYROXINE SODIUM 0.025 MG TABLET PO SCH (09:48)
[2017-08-26] MEDS: METOPROLOL TARTRATE 50 MG TABLET PO SCH (09:49)
[2017-08-26] MEDS: LISINOPRIL 5 MG TABLET PO SCH ×2 (09:49→22:48)
[2017-08-26] MEDS ORDERED: HYDROmorphone 1 MG INJ. 1 MG/ML AMPUL IVP PRN (14:15)
[2017-08-26] MEDS: MORPHINE 2 MG/ML INJ. SYRINGE IVP PRN ×2 (15:59→20:37)
[2017-08-26 16:39] VITALS: BP_SYST 151
[2017-08-26] MEDS ORDERED: ONDANSETRON HCL 4 MG/2 ML VIAL IVP PRN (17:45)
[2017-08-26] MEDS: metroNIDAZOLE 500 mg/NS 100 ML IV SCH ×2 (18:15→22:00)
[2017-08-26] MEDS ORDERED: MAGNESIUM CITRATE 300 ML ORAL SOLUTION PO ONE (18:15)
[2017-08-26] MEDS ORDERED: LEVOFLOXACIN 250 MG/D5W 50 ML IV SCH (18:15)
[2017-08-26 20:00] VITALS: BP_SYST 148
[2017-08-26] MEDS ORDERED: PREGABALIN 75 MG CAPSULE (LYRICA) PO SCH (21:00)
[2017-08-26] MEDS ORDERED: ROSUVASTATIN CALCIUM 5 MG/TAB (CRESTOR) PO SCH (21:00)
[2017-08-26] MEDS ORDERED: MIRTAZAPINE 15 MG TABLET PO SCH (21:00)
[2017-08-26] MEDS: ENOXAPARIN SODIUM 40 MG/0.4 ML SYRINGE SUBCUT SCH (21:00)
[2017-08-26] MEDS: PREGABALIN 25 MG CAPSULE (LYRICA) PO SCH (22:47)
[2017-08-26] MEDS: LACTOBACILLUS RHAMNOSUS GG 1 CAP CAPSULE PO SCH (22:47)
[2017-08-26] MEDS: MIRTAZAPINE 15 MG TABLET PO SCH (22:48)
[2017-08-26] MEDS: SIMVASTATIN 40 MG TABLET PO SCH (22:53)
[2017-08-26] MEDS: QUEtiapine FUMARATE 100 MG TABLET PO SCH (22:53)
[2017-08-26] MEDS: PREGABALIN 75 MG CAPSULE (LYRICA) PO SCH (22:54)
[2017-08-26] MEDS ORDERED: metroNIDAZOLE 500 mg/NS 200 ML IV ONE (23:21)
[2017-08-26] MEDS ORDERED: LEVOFLOXACIN 250 MG/D5W 50 ML IV ONE (23:21)
[2017-08-27 01:05] VITALS: BP_SYST 155
[2017-08-27] MEDS: metroNIDAZOLE 500 mg/NS 100 ML IV SCH ×3 (06:24→22:15)
[2017-08-27] MEDS: LEVOTHYROXINE SODIUM 0.025 MG TABLET PO SCH (06:26)
[2017-08-27 06:44] LABS: AMYLASE 232 U/L (0-100); ANION GAP 7 (5-15); CALCIUM 9.2 mg/dL (8.4-11.0); CHLORIDE 97 mmol/L (98-107); CREATININE 1.17 mg/dL (0.55-1.30); GLUCOSE 380 mg/dL (70-99); LIPASE 81 U/L (73-393); SODIUM SERUM 127 mmol/L (136-145); UREA NITROGEN, BLOOD 34 mg/dL (8-21)
[2017-08-27 06:45] LABS: INR 1.1 (0.8-1.2)
[2017-08-27] MEDS: INSULIN REGULAR, HUMAN 100 UNITS/ML, 10 ML VIAL (novoLIN R) SUBCUT PRN ×4 (07:02→22:14)
[2017-08-27] MEDS: MORPHINE 2 MG/ML INJ. SYRINGE IVP PRN ×3 (07:02→21:33)
[2017-08-27 07:54] LABS: HEMATOCRIT 43.6 % (36-48); LYMPHOCYTES # (AUTO) 2.6 K/uL (1.0-5.5); LYMPHOCYTES % (AUTO) 9.7 % (20.5-51.5); MEAN CORPUSCULAR HEMOGLOBIN 27 pg (27-31); MEAN CORPUSCULAR HGB CONC 32 % (32-36); MEAN CORPUSCULAR VOLUME 83 fL (79.0-98.0); MONOCYTES # (AUTO) 0.9 K/uL (0.0-1.0); MONOCYTES % (AUTO) 3.3 % (1.7-9.3); NEUTROPHILS # (AUTO) 23.1 K/uL (1.8-7.7); PLATELET COUNT (AUTO) 350 K/uL (130-430); RED BLOOD CELL COUNT(AUTO) 5.27 MIL/uL (4.2-6.2); RED CELL DISTRIBUTION WIDTH 14.3 % (9.0-15.0); WHITE BLOOD COUNT (AUTO) 26.6 K/uL (4.8-10.8)
[2017-08-27 08:24] VITALS: BP_SYST 139
[2017-08-27] MEDS: PANTOPRAZOLE SODIUM 40 MG TAB PO SCH (10:21)
[2017-08-27] MEDS: FLUCONAZOLE 100 MG TABLET (DIFLUCAN) PO SCH (10:21)
[2017-08-27] MEDS: buPROPion HCL 150 MG XL TAB PO SCH (10:22)
[2017-08-27] MEDS: METOPROLOL TARTRATE 50 MG TABLET PO SCH (10:22)
[2017-08-27] MEDS: LACTOBACILLUS RHAMNOSUS GG 1 CAP CAPSULE PO SCH ×2 (10:23→21:13)
[2017-08-27] MEDS: LISINOPRIL 5 MG TABLET PO SCH ×2 (10:23→21:13)
[2017-08-27] MEDS: LIPASE/PROTEASE/AMYLASE 1 CAP PO SCH (10:24)
[2017-08-27] MEDS: D5W IV SCH ×2 (10:33→21:18)
[2017-08-27] MEDS: AMIKACIN SULFATE IV SCH ×2 (10:33→21:18)
[2017-08-27] MEDS: LOSARTAN POTASSIUM 50 MG TABLET (COZAAR) PO SCH (10:35)
[2017-08-27 12:49] VITALS: BP_SYST 153
[2017-08-27] MEDS: KCL 20 mEq in 0.45% NS 1000 mL 1,000 ML IV SCH (15:56)
[2017-08-27 16:08] VITALS: BP_SYST 159
[2017-08-27 20:00] VITALS: BP_SYST 149
[2017-08-27] MEDS: SIMVASTATIN 40 MG TABLET PO SCH (21:13)
[2017-08-27] MEDS: ENOXAPARIN SODIUM 40 MG/0.4 ML SYRINGE SUBCUT SCH (21:14)
[2017-08-27] MEDS: MIRTAZAPINE 15 MG TABLET PO SCH (21:14)
[2017-08-27] MEDS: PREGABALIN 25 MG CAPSULE (LYRICA) PO SCH (21:14)
[2017-08-27] MEDS: PREGABALIN 75 MG CAPSULE (LYRICA) PO SCH (21:29)
[2017-08-27] MEDS: QUEtiapine FUMARATE 100 MG TABLET PO SCH (21:32)
[2017-08-27] MEDS ORDERED: PIPERACILLIN/TAZO 4.5GM/DEX-IS 100 ML IV SCH (22:00)
[2017-08-27] MEDS ORDERED: [UNRECOGNIZED DRUG - OTHER] IV SCH (22:00)
[2017-08-27] MEDS ORDERED: metroNIDAZOLE 500 mg/NS 100 ML IV SCH (22:00)
[2017-08-27] MEDS ORDERED: ZOSYN IV SCH (22:00)
[2017-08-28 00:50] VITALS: BP_SYST 101
[2017-08-28] MEDS: metroNIDAZOLE 500 mg/NS 100 ML IV SCH ×3 (05:34→23:16)
[2017-08-28] MEDS: KCL 20 mEq in 0.45% NS 1000 mL 1,000 ML IV SCH (05:37)
[2017-08-28] MEDS ORDERED: PIPERACILLIN/TAZOBACTAM 2.25 GM VIAL IV ONE (05:57)
[2017-08-28] MEDS: LEVOTHYROXINE SODIUM 0.025 MG TABLET PO SCH (06:24)
[2017-08-28] MEDS: INSULIN REGULAR, HUMAN 100 UNITS/ML, 10 ML VIAL (novoLIN R) SUBCUT PRN ×5 (06:36→21:34)
[2017-08-28] MEDS: ZOSYN (PIPERACILLIN/TAZO) 2.25 GM in DEX-ISO (50ml) IV SCH ×3 (07:12→17:37)
[2017-08-28 08:15] VITALS: BP_SYST 138
[2017-08-28 08:27] LABS: BASOPHILS % (AUTO) 0.2 % (0.0-2.0); EOSINOPHILS % (AUTO) 0.2 % (0.0-4.0); HEMATOCRIT 37.6 % (36-48); HEMOGLOBIN 12.3 g/dL (12.0-16.0); LYMPHOCYTES # (AUTO) 1.8 K/uL (1.0-5.5); LYMPHOCYTES % (AUTO) 8.2 % (20.5-51.5); MEAN CORPUSCULAR HEMOGLOBIN 27 pg (27-31); MEAN CORPUSCULAR HGB CONC 33 % (32-36); MEAN CORPUSCULAR VOLUME 83 fL (79.0-98.0); MONOCYTES % (AUTO) 4.3 % (1.7-9.3); NEUTROPHILS # (AUTO) 19.5 K/uL (1.8-7.7); PLATELET COUNT (AUTO) 272 K/uL (130-430); RED BLOOD CELL COUNT(AUTO) 4.52 MIL/uL (4.2-6.2); RED CELL DISTRIBUTION WIDTH 14.3 % (9.0-15.0)
[2017-08-28 08:50] LABS: AMYLASE 77 U/L (0-100); ANION GAP 9 (5-15); CALCIUM 9.1 mg/dL (8.4-11.0); CHLORIDE 100 mmol/L (98-107); CREATININE 1.11 mg/dL (0.55-1.30); GLUCOSE 310 mg/dL (70-99); LIPASE 74 U/L (73-393); POTASSIUM 4.5 mmol/L (3.5-5.1); SODIUM SERUM 131 mmol/L (136-145); UREA NITROGEN, BLOOD 24 mg/dL (8-21)
[2017-08-28] MEDS: LIPASE/PROTEASE/AMYLASE 1 CAP PO SCH (09:25)
[2017-08-28] MEDS: buPROPion HCL 150 MG XL TAB PO SCH (09:25)
[2017-08-28] MEDS: LACTOBACILLUS RHAMNOSUS GG 1 CAP CAPSULE PO SCH ×2 (09:26→21:22)
[2017-08-28] MEDS: LOSARTAN POTASSIUM 50 MG TABLET (COZAAR) PO SCH (09:26)
[2017-08-28] MEDS: LISINOPRIL 5 MG TABLET PO SCH ×2 (09:27→21:22)
[2017-08-28] MEDS: FLUCONAZOLE 100 MG TABLET (DIFLUCAN) PO SCH (09:27)
[2017-08-28 09:28] LABS: WHITE BLOOD COUNT (AUTO) 22.3 K/uL (4.8-10.8)
[2017-08-28] MEDS: PANTOPRAZOLE SODIUM 40 MG TAB PO SCH (09:28)
[2017-08-28] MEDS: METOPROLOL TARTRATE 50 MG TABLET PO SCH (09:28)
[2017-08-28] MEDS: D5W IV SCH ×2 (09:29→21:19)
[2017-08-28] MEDS: AMIKACIN SULFATE IV SCH ×2 (09:29→21:19)
[2017-08-28 10:07] LABS: NEUTROPHILS % (AUTO) 87.1 % (40.0-70.0)
[2017-08-28] MEDS: MORPHINE 2 MG/ML INJ. SYRINGE IVP PRN (10:56)
[2017-08-28 11:26] VITALS: BP_SYST 162
[2017-08-28 16:19] VITALS: BP_SYST 128
[2017-08-28 20:00] VITALS: BP_SYST 103
[2017-08-28] MEDS: MIRTAZAPINE 15 MG TABLET PO SCH (21:21)
[2017-08-28] MEDS: SIMVASTATIN 40 MG TABLET PO SCH (21:21)
[2017-08-28] MEDS: PREGABALIN 25 MG CAPSULE (LYRICA) PO SCH (21:21)
[2017-08-28] MEDS: ENOXAPARIN SODIUM 40 MG/0.4 ML SYRINGE SUBCUT SCH (21:21)
[2017-08-28] MEDS: QUEtiapine FUMARATE 100 MG TABLET PO SCH (21:22)
[2017-08-28] MEDS: PREGABALIN 75 MG CAPSULE (LYRICA) PO SCH (21:22)
[2017-08-29 00:29] VITALS: BP_SYST 84
[2017-08-29] MEDS ORDERED: NS 500 ML IV ONE (00:30)
[2017-08-29] MEDS: ZOSYN (PIPERACILLIN/TAZO) 2.25 GM in DEX-ISO (50ml) IV SCH ×4 (01:37→17:24)
[2017-08-29] MEDS ORDERED: KCL 20 mEq in 0.45% NS 1000 mL 1,000 ML IV SCH (02:00)
[2017-08-29 04:00] VITALS: BP_SYST 116
[2017-08-29] MEDS: metroNIDAZOLE 500 mg/NS 100 ML IV SCH ×3 (06:45→21:28)
[2017-08-29 06:47] LABS: BASOPHILS # (AUTO) 0.1 K/uL (0.0-0.2); BASOPHILS % (AUTO) 0.3 % (0.0-2.0); EOSINOPHILS # (AUTO) 0.1 K/uL (0.0-0.4); EOSINOPHILS % (AUTO) 0.5 % (0.0-4.0); HEMATOCRIT 32.9 % (36-48); HEMOGLOBIN 10.5 g/dL (12.0-16.0); LYMPHOCYTES # (AUTO) 3.2 K/uL (1.0-5.5); LYMPHOCYTES % (AUTO) 16.7 % (20.5-51.5); MEAN CORPUSCULAR HEMOGLOBIN 27 pg (27-31); MEAN CORPUSCULAR HGB CONC 32 % (32-36); MONOCYTES # (AUTO) 0.9 K/uL (0.0-1.0); MONOCYTES % (AUTO) 4.7 % (1.7-9.3); PLATELET COUNT (AUTO) 222 K/uL (130-430); RED BLOOD CELL COUNT(AUTO) 3.88 MIL/uL (4.2-6.2); RED CELL DISTRIBUTION WIDTH 14.6 % (9.0-15.0); WHITE BLOOD COUNT (AUTO) 19.3 K/uL (4.8-10.8)
[2017-08-29 07:26] LABS: MEAN CORPUSCULAR VOLUME 84 fL (79.0-98.0)
[2017-08-29 07:32] LABS: ALANINE AMINOTRANSFERASE 19 U/L (12-78); ALBUMIN 2.1 g/dL (3.4-4.8); ANION GAP 3 (5-15); ASPARTATE AMINOTRANSFERASE 21 U/L (10-37); CALCIUM 8.3 mg/dL (8.4-11.0); CHLORIDE 105 mmol/L (98-107); CREATININE 1.07 mg/dL (0.55-1.30); GLUCOSE 125 mg/dL (70-99); LIPASE 58 U/L (73-393); POTASSIUM 4.1 mmol/L (3.5-5.1); SODIUM SERUM 133 mmol/L (136-145); TOTAL BILIRUBIN 0.4 mg/dL (0.0-1.0); UREA NITROGEN, BLOOD 19 mg/dL (8-21)
[2017-08-29 07:55] VITALS: BP_SYST 137
[2017-08-29 09:19] LABS: NEUTROPHILS % (AUTO) 77.8 % (40.0-70.0)
[2017-08-29] MEDS: LACTOBACILLUS RHAMNOSUS GG 1 CAP CAPSULE PO SCH ×2 (09:29→21:35)
[2017-08-29] MEDS: METOPROLOL TARTRATE 50 MG TABLET PO SCH (09:29)
[2017-08-29] MEDS: LIPASE/PROTEASE/AMYLASE 1 CAP PO SCH (09:29)
[2017-08-29] MEDS: buPROPion HCL 150 MG XL TAB PO SCH (09:29)
[2017-08-29] MEDS: PANTOPRAZOLE SODIUM 40 MG TAB PO SCH (09:30)
[2017-08-29] MEDS: NACL 0.9% 1,000 ML IV SCH ×2 (09:41→17:24)
[2017-08-29] MEDS: LEVOTHYROXINE SODIUM 0.025 MG TABLET PO SCH (11:37)
[2017-08-29] MEDS: INSULIN REGULAR, HUMAN 100 UNITS/ML, 10 ML VIAL (novoLIN R) SUBCUT PRN (11:43)
[2017-08-29 12:21] VITALS: BP_SYST 121
[2017-08-29 16:10] VITALS: BP_SYST 119
[2017-08-29 20:00] VITALS: BP_SYST 114
[2017-08-29] MEDS: PREGABALIN 25 MG CAPSULE (LYRICA) PO SCH (21:35)
[2017-08-29] MEDS: ENOXAPARIN SODIUM 40 MG/0.4 ML SYRINGE SUBCUT SCH (21:35)
[2017-08-29] MEDS: QUEtiapine FUMARATE 100 MG TABLET PO SCH (21:35)
[2017-08-29] MEDS: MIRTAZAPINE 15 MG TABLET PO SCH (21:35)
[2017-08-29] MEDS: PREGABALIN 75 MG CAPSULE (LYRICA) PO SCH (21:35)
[2017-08-29] MEDS: SIMVASTATIN 40 MG TABLET PO SCH (21:35)
[2017-08-30 00:05] VITALS: BP_SYST 145
[2017-08-30] MEDS: ZOSYN (PIPERACILLIN/TAZO) 2.25 GM in DEX-ISO (50ml) IV SCH ×5 (00:30→23:27)
[2017-08-30] MEDS: NACL 0.9% 1,000 ML IV SCH ×2 (03:04→14:31)
[2017-08-30] MEDS: metroNIDAZOLE 500 mg/NS 100 ML IV SCH ×3 (05:12→21:19)
[2017-08-30] MEDS: LEVOTHYROXINE SODIUM 0.025 MG TABLET PO SCH (06:21)
[2017-08-30 06:48] LABS: BASOPHILS % (AUTO) 0.3 % (0.0-2.0); EOSINOPHILS # (AUTO) 0.1 K/uL (0.0-0.4); EOSINOPHILS % (AUTO) 0.8 % (0.0-4.0); HEMATOCRIT 28.9 % (36-48); HEMOGLOBIN 9.5 g/dL (12.0-16.0); LYMPHOCYTES # (AUTO) 2.7 K/uL (1.0-5.5); LYMPHOCYTES % (AUTO) 20.8 % (20.5-51.5); MEAN CORPUSCULAR HEMOGLOBIN 27 pg (27-31); MEAN CORPUSCULAR HGB CONC 33 % (32-36); MEAN CORPUSCULAR VOLUME 84 fL (79.0-98.0); MONOCYTES # (AUTO) 0.8 K/uL (0.0-1.0); MONOCYTES % (AUTO) 6.2 % (1.7-9.3); NEUTROPHILS # (AUTO) 9.4 K/uL (1.8-7.7); NEUTROPHILS % (AUTO) 71.9 % (40.0-70.0); PLATELET COUNT (AUTO) 218 K/uL (130-430); RED BLOOD CELL COUNT(AUTO) 3.46 MIL/uL (4.2-6.2); RED CELL DISTRIBUTION WIDTH 14.5 % (9.0-15.0)
[2017-08-30 07:14] LABS: ALANINE AMINOTRANSFERASE 15 U/L (12-78); ALBUMIN 1.9 g/dL (3.4-4.8); ANION GAP 5 (5-15); ASPARTATE AMINOTRANSFERASE 18 U/L (10-37); CALCIUM 8.2 mg/dL (8.4-11.0); CHLORIDE 111 mmol/L (98-107); CREATININE 0.81 mg/dL (0.55-1.30); GLUCOSE 84 mg/dL (70-99); POTASSIUM 3.7 mmol/L (3.5-5.1); SODIUM SERUM 139 mmol/L (136-145); THYROID STIMULATING HORMONE 1.44 uIu/mL (0.34-4.82); TOTAL BILIRUBIN 0.3 mg/dL (0.0-1.0); UREA NITROGEN, BLOOD 10 mg/dL (8-21)
[2017-08-30 08:32] VITALS: BP_SYST 143
[2017-08-30] MEDS ORDERED: SORBITOL 70% SOLUTION, 30 ML UDBTL PO ONE (09:45)
[2017-08-30] MEDS: LACTOBACILLUS RHAMNOSUS GG 1 CAP CAPSULE PO SCH ×2 (10:18→21:20)
[2017-08-30] MEDS: LIPASE/PROTEASE/AMYLASE 1 CAP PO SCH (10:18)
[2017-08-30] MEDS: buPROPion HCL 150 MG XL TAB PO SCH (10:18)
[2017-08-30] MEDS: PANTOPRAZOLE SODIUM 40 MG TAB PO SCH (10:18)
[2017-08-30] MEDS: METOPROLOL TARTRATE 50 MG TABLET PO SCH (10:19)
[2017-08-30 11:55] VITALS: BP_SYST 150
[2017-08-30] MEDS: INSULIN ASPART 100 UNITS/ML, 10 ML VIAL (NovoLOG) SUBCUT PRN ×2 (12:00→21:17)
[2017-08-30 16:35] VITALS: BP_SYST 139
[2017-08-30] MEDS ORDERED: BISACODYL 5 MG TABLET.DR (DULCOLAX) PO ONE (17:00)
[2017-08-30] MEDS ORDERED: MAGNESIUM CITRATE 300 ML ORAL SOLUTION PO ONE (19:00)
[2017-08-30 19:50] VITALS: BP_SYST 164
[2017-08-30] MEDS: ENOXAPARIN SODIUM 40 MG/0.4 ML SYRINGE SUBCUT SCH (21:18)
[2017-08-30] MEDS: PREGABALIN 25 MG CAPSULE (LYRICA) PO SCH (21:19)
[2017-08-30] MEDS: SIMVASTATIN 40 MG TABLET PO SCH (21:20)
[2017-08-30] MEDS: MIRTAZAPINE 15 MG TABLET PO SCH (21:20)
[2017-08-30] MEDS: PREGABALIN 75 MG CAPSULE (LYRICA) PO SCH (21:20)
[2017-08-30] MEDS: QUEtiapine FUMARATE 100 MG TABLET PO SCH (21:20)
[2017-08-30 23:27] VITALS: BP_SYST 150
[2017-08-31] MEDS: NACL 0.9% 1,000 ML IV SCH ×4 (02:58→18:06)
[2017-08-31] MEDS: metroNIDAZOLE 500 mg/NS 100 ML IV SCH ×3 (05:55→21:55)
[2017-08-31] MEDS: ZOSYN (PIPERACILLIN/TAZO) 2.25 GM in DEX-ISO (50ml) IV SCH ×3 (05:55→17:01)
[2017-08-31] MEDS: INSULIN ASPART 100 UNITS/ML, 10 ML VIAL (NovoLOG) SUBCUT PRN ×3 (06:03→22:02)
[2017-08-31] MEDS: LEVOTHYROXINE SODIUM 0.025 MG TABLET PO SCH (06:03)
[2017-08-31 07:00] LABS: BASOPHILS % (AUTO) 0.2 % (0.0-2.0); EOSINOPHILS # (AUTO) 0.1 K/uL (0.0-0.4); EOSINOPHILS % (AUTO) 0.7 % (0.0-4.0); LYMPHOCYTES # (AUTO) 2.2 K/uL (1.0-5.5); LYMPHOCYTES % (AUTO) 14.9 % (20.5-51.5); MEAN CORPUSCULAR HEMOGLOBIN 28 pg (27-31); MEAN CORPUSCULAR HGB CONC 33 % (32-36); MEAN CORPUSCULAR VOLUME 84 fL (79.0-98.0); MONOCYTES # (AUTO) 0.9 K/uL (0.0-1.0); MONOCYTES % (AUTO) 5.9 % (1.7-9.3); NEUTROPHILS # (AUTO) 11.4 K/uL (1.8-7.7); NEUTROPHILS % (AUTO) 78.3 % (40.0-70.0); PLATELET COUNT (AUTO) 230 K/uL (130-430); RED BLOOD CELL COUNT(AUTO) 3.57 MIL/uL (4.2-6.2); RED CELL DISTRIBUTION WIDTH 14.6 % (9.0-15.0); WHITE BLOOD COUNT (AUTO) 14.6 K/uL (4.8-10.8)
[2017-08-31 07:02] LABS: ANION GAP 7 (5-15); CALCIUM 8.4 mg/dL (8.4-11.0); CHLORIDE 115 mmol/L (98-107); CREATININE 0.85 mg/dL (0.55-1.30); GLUCOSE 175 mg/dL (70-99); POTASSIUM 3.5 mmol/L (3.5-5.1); SODIUM SERUM 144 mmol/L (136-145); UREA NITROGEN, BLOOD 7 mg/dL (8-21)
[2017-08-31 07:07] LABS: INR 1.2 (0.8-1.2); PROTHROMBIN TIME 11.8 SECS (9.5-12.5)
[2017-08-31 08:26] VITALS: BP_SYST 148
[2017-08-31] MEDS: METOPROLOL TARTRATE 50 MG TABLET PO SCH (09:00)
[2017-08-31] MEDS: buPROPion HCL 150 MG XL TAB PO SCH (09:00)
[2017-08-31] MEDS: LACTOBACILLUS RHAMNOSUS GG 1 CAP CAPSULE PO SCH ×2 (09:00→21:55)
[2017-08-31] MEDS: PANTOPRAZOLE SODIUM 40 MG TAB PO SCH (09:00)
[2017-08-31] MEDS: LIPASE/PROTEASE/AMYLASE 1 CAP PO SCH (09:00)
[2017-08-31] MEDS: MORPHINE 2 MG/ML INJ. SYRINGE IVP PRN ×2 (09:43→15:31)
[2017-08-31] MEDS ORDERED: SIMETHICONE 40 MG/0.6 ML ML ONE (09:58)
[2017-08-31] MEDS ORDERED: MEPERIDINE HCL/PF 100 MG/ML AMP ONE (09:58)
[2017-08-31] MEDS ORDERED: MIDAZOLAM HCL 5 MG/5 ML VIAL ONE (09:59)
[2017-08-31 12:16] VITALS: BP_SYST 148
[2017-08-31 17:14] VITALS: BP_SYST 141
[2017-08-31 20:00] VITALS: BP_SYST 151
[2017-08-31] MEDS: ENOXAPARIN SODIUM 40 MG/0.4 ML SYRINGE SUBCUT SCH (21:55)
[2017-08-31] MEDS: MIRTAZAPINE 15 MG TABLET PO SCH (21:56)
[2017-08-31] MEDS: SIMVASTATIN 40 MG TABLET PO SCH (21:56)
[2017-08-31] MEDS: PREGABALIN 25 MG CAPSULE (LYRICA) PO SCH (21:56)
[2017-08-31] MEDS: QUEtiapine FUMARATE 100 MG TABLET PO SCH (21:56)
[2017-08-31] MEDS: PREGABALIN 75 MG CAPSULE (LYRICA) PO SCH (21:56)
[2017-09-01] VITALS: BP_SYST 138
[2017-09-01] MEDS: ZOSYN (PIPERACILLIN/TAZO) 2.25 GM in DEX-ISO (50ml) IV SCH ×4 (00:09→17:34)
[2017-09-01] MEDS: NACL 0.9% 1,000 ML IV SCH ×3 (04:10→16:46)
[2017-09-01] MEDS: LEVOTHYROXINE SODIUM 0.025 MG TABLET PO SCH (05:59)
[2017-09-01] MEDS: INSULIN ASPART 100 UNITS/ML, 10 ML VIAL (NovoLOG) SUBCUT PRN ×3 (06:01→21:23)
[2017-09-01 06:16] LABS: BASOPHILS # (AUTO) 0.1 K/uL (0.0-0.2); BASOPHILS % (AUTO) 1.1 % (0.0-2.0); EOSINOPHILS # (AUTO) 0.1 K/uL (0.0-0.4); EOSINOPHILS % (AUTO) 1.1 % (0.0-4.0); HEMATOCRIT 31.3 % (36-48); HEMOGLOBIN 10.1 g/dL (12.0-16.0); LYMPHOCYTES # (AUTO) 1.7 K/uL (1.0-5.5); LYMPHOCYTES % (AUTO) 18.3 % (20.5-51.5); MEAN CORPUSCULAR HEMOGLOBIN 27 pg (27-31); MEAN CORPUSCULAR HGB CONC 32 % (32-36); MEAN CORPUSCULAR VOLUME 84 fL (79.0-98.0); MONOCYTES # (AUTO) 0.6 K/uL (0.0-1.0); MONOCYTES % (AUTO) 6.2 % (1.7-9.3); NEUTROPHILS % (AUTO) 73.3 % (40.0-70.0); PLATELET COUNT (AUTO) 264 K/uL (130-430); RED BLOOD CELL COUNT(AUTO) 3.75 MIL/uL (4.2-6.2); RED CELL DISTRIBUTION WIDTH 14.4 % (9.0-15.0); WHITE BLOOD COUNT (AUTO) 9.5 K/uL (4.8-10.8)
[2017-09-01 06:33] LABS: ANION GAP 9 (5-15); CALCIUM 8.4 mg/dL (8.4-11.0); CHLORIDE 108 mmol/L (98-107); CREATININE 0.65 mg/dL (0.55-1.30); GLUCOSE 209 mg/dL (70-99); POTASSIUM 3.5 mmol/L (3.5-5.1); SODIUM SERUM 136 mmol/L (136-145); UREA NITROGEN, BLOOD 5 mg/dL (8-21)
[2017-09-01] MEDS: metroNIDAZOLE 500 mg/NS 100 ML IV SCH ×3 (07:12→21:28)
[2017-09-01] MEDS ORDERED: IOHEXOL 100 ML IV ONE (08:21)
[2017-09-01 08:25] VITALS: BP_SYST 147
[2017-09-01] MEDS: MORPHINE 2 MG/ML INJ. SYRINGE IVP PRN ×2 (08:32→14:25)
[2017-09-01] MEDS: LIPASE/PROTEASE/AMYLASE 1 CAP PO SCH (09:10)
[2017-09-01] MEDS: LACTOBACILLUS RHAMNOSUS GG 1 CAP CAPSULE PO SCH ×2 (09:10→21:00)
[2017-09-01] MEDS: buPROPion HCL 150 MG XL TAB PO SCH (09:11)
[2017-09-01] MEDS: METOPROLOL TARTRATE 50 MG TABLET PO SCH (09:11)
[2017-09-01] MEDS: PANTOPRAZOLE SODIUM 40 MG TAB PO SCH (09:11)
[2017-09-01 12:10] VITALS: BP_SYST 149
[2017-09-01 16:15] VITALS: BP_SYST 106
[2017-09-01 20:15] VITALS: BP_SYST 141
[2017-09-01] MEDS: SIMVASTATIN 40 MG TABLET PO SCH (21:00)
[2017-09-01] MEDS: QUEtiapine FUMARATE 100 MG TABLET PO SCH (21:00)
[2017-09-01] MEDS: PREGABALIN 75 MG CAPSULE (LYRICA) PO SCH (21:00)
[2017-09-01] MEDS: MIRTAZAPINE 15 MG TABLET PO SCH (21:00)
[2017-09-01] MEDS: PREGABALIN 25 MG CAPSULE (LYRICA) PO SCH (21:00)
[2017-09-01] MEDS: ENOXAPARIN SODIUM 40 MG/0.4 ML SYRINGE SUBCUT SCH (21:00)
[2017-09-02] MEDS: ZOSYN (PIPERACILLIN/TAZO) 2.25 GM in DEX-ISO (50ml) IV SCH ×3 (00:07→12:05)
[2017-09-02 00:28] VITALS: BP_SYST 150
[2017-09-02] MEDS: NACL 0.9% 1,000 ML IV SCH (02:47)
[2017-09-02] MEDS: metroNIDAZOLE 500 mg/NS 100 ML IV SCH (05:32)
[2017-09-02] MEDS: MORPHINE 2 MG/ML INJ. SYRINGE IVP PRN (05:39)
[2017-09-02] MEDS: LEVOTHYROXINE SODIUM 0.025 MG TABLET PO SCH (06:49)
[2017-09-02] MEDS: INSULIN ASPART 100 UNITS/ML, 10 ML VIAL (NovoLOG) SUBCUT PRN ×2 (06:57→12:04)
[2017-09-02 09:25] VITALS: BP_SYST 141
[2017-09-02] MEDS: LIPASE/PROTEASE/AMYLASE 1 CAP PO SCH (09:31)
[2017-09-02] MEDS: LACTOBACILLUS RHAMNOSUS GG 1 CAP CAPSULE PO SCH (09:31)
[2017-09-02] MEDS: METOPROLOL TARTRATE 50 MG TABLET PO SCH (09:31)
[2017-09-02] MEDS: buPROPion HCL 150 MG XL TAB PO SCH (09:32)
[2017-09-02] MEDS: PANTOPRAZOLE SODIUM 40 MG TAB PO SCH (09:32)
[2017-09-02 11:50] VITALS: BP_SYST 110
[2017-09-02 12:00] VITALS: BP_SYST 134
[2017-09-02 16:44] VITALS: BP_SYST 128
[2017-09-02 17:14] VITALS: BP_SYST 128
[2017-09-02] MEDS ORDERED: FLA250 PO (17:26)
[2017-09-02] MEDS ORDERED: AMOX-423 PO (17:28)
[2017-09-03] MEDS ORDERED: INSULIN ASPART 100 UNITS/ML, 10 ML VIAL SUBCUT SCH (07:00)
== END 2017-09-02 18:25 | disposition home or self-care (01) | DRG 385 ==
LOC: SMU 16:34
PROVIDERS: ADMIT Internal Medicine Infectious Disease; ATTEND Internal Medicine Infectious Disease
PROC: 0DBM8ZX Excision of Descending Colon, Via Natural or Artificial Opening Endoscopic, Diagnostic (ICD-10-PCS; principal; 2017-08-31 13:30)
DX: K51.511 Left sided colitis with rectal bleeding (principal); K57.93 Diverticulitis of intestine, part unspecified, without perforation or abscess with bleeding; I95.9 Hypotension, unspecified; E46 Unspecified protein-calorie malnutrition; E11.42 Type 2 diabetes mellitus with diabetic polyneuropathy; E88.09 Other disorders of plasma-protein metabolism, not elsewhere classified; E11.40 Type 2 diabetes mellitus with diabetic neuropathy, unspecified; B37.49 Other urogenital candidiasis; K56.7 Ileus, unspecified; J98.11 Atelectasis; E11.65 Type 2 diabetes mellitus with hyperglycemia; J44.9 Chronic obstructive pulmonary disease, unspecified; E03.9 Hypothyroidism, unspecified; M19.90 Unspecified osteoarthritis, unspecified site; E78.5 Hyperlipidemia, unspecified; I10 Essential (primary) hypertension; K21.9 Gastro-esophageal reflux disease without esophagitis; F32.9 Major depressive disorder, single episode, unspecified; K76.0 Fatty (change of) liver, not elsewhere classified; Z90.710 Acquired absence of both cervix and uterus; Z87.440 Personal history of urinary (tract) infections; Z85.828 Personal history of other malignant neoplasm of skin; Z90.49 Acquired absence of other specified parts of digestive tract; Z68.26 Body mass index [BMI] 26.0-26.9, adult; Z79.82 Long term (current) use of aspirin; Z79.899 Other long term (current) drug therapy; Z88.2 Allergy status to sulfonamides; Z88.8 Allergy status to other drugs, medicaments and biological substances; Z83.3 Family history of diabetes mellitus
CPT/HCPCS: 36415; 45380; 71045; 72191; 74018; 74175; 76770; 80048; 80053; 80150; 81000-TC; 82150-TC; 82962; 83036; 83690-TC; 83735-TC; 83880; 84443-TC; 85025; 85610-TC; 85730-TC; 87040-TC; 87045-TC; 87046; 87177; 87230-TC; 88305; 89055; 93005; 97110-GP; 97116-GP; 97530-GP; J0278; J1650; J1815; J1956; J2175; J2250; J2270; J2543; J3480; J3490; J7030; J7040; J7050; J7060; Q9967